=== PATIENT | male | born 1935 | race Caucasian/White ===

== ENCOUNTER 2019-10-30 11:56 | Inpatient (IN) | payer MEDICARE, BC ==
[2019-10-30 12:37] LABS: Basophils % (A) 1 %; Eosinophils # (A) 0.1 k/uL (0-0.7); Eosinophils % (A) 1 %; HCT 42.2 % (39.0-53.0); HGB 13.6 gm/dL (13.0-17.5); Lymphocytes # (A) 0.5 k/uL (1.0-4.8); Lymphocytes % (A) 5 %; MCH 31.9 pg (25.0-35.0); MCHC 32.2 g/dL (31.0-37.0); MCV 99.1 fL (80.0-100.0); Monocytes # (A) 0.4 k/uL (0-1.0); Monocytes % (A) 4 %; Neutrophils # (A) 8.8 k/uL (1.3-7.7); Neutrophils % (A) 89 %; Platelet Count 163 k/uL (150-450); RBC 4.26 m/uL (4.30-5.90); RDW 13.2 % (11.5-15.5); WBC 9.9 k/uL (3.8-10.6)
--- NOTE | 2019-10-30 12:40 | ED ---
General Adult HPI - General Chief complaint: Abdominal Pain Stated complaint: gallbladder infection/sent by pcp Time Seen by Provider: 10/30/19 12:12 Source: patient Mode of arrival: ambulatory Limitations: no limitations - History of Present Illness Initial comments: Dictation was produced using [employer] dictation software. please excuse any grammatical, word or spelling errors. This patient was cared for during a federal and state declared state of emergency secondary to Covid 19 Chief Complaint: 84-year-old male presents with right arm quadrant abdominal pain History of Present Illness: 84-year-old male presents today with right upper quadrant abdominal pain. Patient states his symptoms began at 2:30 AM last night. He had some cheese and crackers for dinner yesterday. Patient has had history of right upper quadrant abdominal pain in the past. He was told that he had a small gallstone. He has not had any gallstone attack in several years. Does complain of some diarrhea. Complains of some mild nausea but no vomiting. Denies any constitutional symptoms. They've been checking his temperature at home without any abnormal measurements. The ROS documented in this emergency department record has been reviewed and confirmed by me. Those systems with pertinent positive or negative responses have been documented in the HPI. All other systems are other negative and/or noncontributory. PHYSICAL EXAM: General Impression: Alert and oriented x3, not in acute distress HEENT: Normocephalic atraumatic, extra-ocular movements intact, pupils equal and reactive to light bilaterally, mucous membranes moist. Cardiovascular: Heart regular rate and rhythm Chest: Able to complete full sentences, no retractions, no tachypnea Abdomen: abdomen soft, non-tender, non-distended, no organomegaly, positive Sullivan sign Musculoskeletal: Pulses present and equal in all extremities, no peripheral edema Motor: no focal deficits noted Neurological: CN II-XII grossly intact, no focal motor or sensory deficits noted Skin: Intact with no visualized rashes Psych: Normal affect and mood ED course: 84 y Old male presents with right upper quadrant abdominal pain. Signs upon arrival are within acceptable limits. Laboratory evaluation obtained. CBC unremarkable. No leukocytosis however there is elevated neutrophils. Metabolic panel is unremarkable. No elevation abdominal labs. No elevated bilirubinemia. Acute abdominal series and chest x-ray is nonacute. Abdominal ultrasound shows hydropic gallbladder with biliary sludge. Patient reevaluated at bedside continues to have right upper quadrant pain. Considering patient's symptoms and ultrasound findings and lipase showed benefit from inpatient observation. Discussed patient case with Dr. Bal who is willing to accept patient's care. [facility] hospitalist group is on consult. EKG interpretation: Ventricular rate 50, sinus bradycardia, AK 164, QRS 110, QTc 479. No AK prolongation, no QTC prolongation, no ST or T-wave changes noted. . Overall, this EKG is unremarkable - Related Data Home Medications Medication Instructions Recorded Confirmed ALPRAZolam [Xanax] 0.5 mg PO BID 10/30/19 10/30/19 Finasteride [Proscar] 5 mg PO DAILY 10/30/19 10/30/19 Montelukast [Singulair] 10 mg PO HS 10/30/19 10/30/19 Multivitamins, Thera [Multivitamin 1 tab PO DAILY 10/30/19 10/30/19 (formulary)] Sotalol [Betapace] 80 mg PO BID 10/30/19 10/30/19 Terazosin [Hytrin] 2 mg PO HS 10/30/19 10/30/19 Allergies Allergy/AdvReac Type Severity Reaction Status Date / Time No Known Allergies Allergy Verified 10/30/19 12:52 Review of Systems ROS Statement: Those systems with pertinent positive or pertinent negative responses have been documented in the HPI. ROS Other: All systems not noted in ROS Statement are negative. Past Medical History Past Medical History: Unable to Obtain History of Any Multi-Drug Resistant Organisms: None Reported Past Surgical History: No Surgical Hx Reported Past Psychological History: No Psychological Hx Reported Smoking Status: Never smoker Past Alcohol Use History: Unable to Obtain Past Drug Use History: None Reported General Exam Limitations: no limitations Course Vital Signs 10/30/19 10/30/19 12:07 13:14 Temperature 97.8 F Pulse Rate 62 70 Respiratory 16 18 Rate Blood Pressure 109/64 138/85 O2 Sat by Pulse 96 96 Oximetry Medical Decision Making - Lab Data Result diagrams: 10/30/19 12:27 10/30/19 12:27 Lab Results 10/30/19 10/30/19 Range/Units 12:27 12:27 WBC 9.9 (3.8-10.6) k/uL RBC 4.26 L (4.30-5.90) m/uL Hgb 13.6 (13.0-17.5) gm/dL Hct 42.2 (39.0-53.0) % MCV 99.1 (80.0-100.0) fL MCH 31.9 (25.0-35.0) pg MCHC 32.2 (31.0-37.0) g/dL RDW 13.2 (11.5-15.5) % Plt Count 163 (150-450) k/uL Neutrophils % 89 % Lymphocytes % 5 % Monocytes % 4 % Eosinophils % 1 % Basophils % 1 % Neutrophils # 8.8 H (1.3-7.7) k/uL Lymphocytes # 0.5 L (1.0-4.8) k/uL Monocytes # 0.4 (0-1.0) k/uL Eosinophils # 0.1 (0-0.7) k/uL Basophils # 0.0 (0-0.2) k/uL Sodium 136 L (137-145) mmol/L Potassium 4.4 (3.5-5.1) mmol/L Chloride 102 (98-107) mmol/L Carbon Dioxide 25 (22-30) mmol/L Anion Gap 9 mmol/L BUN 32 H (9-20) mg/dL Creatinine 1.17 (0.66-1.25) mg/dL Est GFR (CKD-EPI)AfAm 66 (>60 ml/min/1.73 sqM) Est GFR (CKD-EPI)NonAf 57 (>60 ml/min/1.73 sqM) Glucose 163 H (74-99) mg/dL Calcium 10.7 H (8.4-10.2) mg/dL Magnesium 2.1 (1.6-2.3) mg/dL Total Bilirubin 0.9 (0.2-1.3) mg/dL AST 29 (17-59) U/L ALT 23 (4-49) U/L Alkaline Phosphatase 74 (38-126) U/L Total Protein 7.1 (6.3-8.2) g/dL Albumin 4.3 (3.5-5.0) g/dL Lipase 113 (23-300) U/L Disposition Clinical Impression: Abdominal pain Disposition: ADMITTED IP TO THIS HOSP Condition: Fair Referrals: Grupo Stevenson DO [Primary Care Provider] - 1-2 days Decision Time: 15:04
[2019-10-30 12:46] LABS: Albumin 4.3 g/dL (3.5-5.0); Calcium 10.7 mg/dL (8.4-10.2); Magnesium 2.1 mg/dL (1.6-2.3); Potassium 4.4 mmol/L (3.5-5.1); Total Bilirubin 0.9 mg/dL (0.2-1.3); Total Protein 7.1 g/dL (6.3-8.2)
--- NOTE | 2019-10-30 13:58 | US ---
EXAMINATION TYPE: US abdomen complete DATE OF EXAM: 10/30/2019 COMPARISON: NONE CLINICAL HISTORY: abdominal pain. Pain. NPO. EXAM MEASUREMENTS: Liver Length: 15.8 cm Gallbladder Wall: 0.2 cm CBD: 0.3 cm Spleen: 10.5 cm Right Kidney: 10.5 x 4.6 x 4.8 cm Left Kidney: 9.3 x 4.6 x 5.4 cm Pancreas: Tail obscured by overlying bowel gas Liver: wnl Gallbladder: Enlarged in size= 13.4 cm. Sludge and stones visualized, largest - 1.0 cm Evidence for sonographic Sullivan's sign: Positive CBD: wnl Spleen: wnl Right Kidney: No hydronephrosis or masses seen Left Kidney: No hydronephrosis or masses seen Upper IVC: wnl Abd Aorta: Proximal obscured by overlying bowel gas. Limited views of the pancreas are unremarkable. The liver is normal in size without biliary dilatation. The gallbladder is hydropic. There is sludge within the gallbladder. The gallbladder wall measures 2 mm. The distal common hepatic duct measures 3 mm. There is a positive sonographic Sullivan's sign. Both kidneys are unremarkable. Visualized portions of aorta and IVC are unremarkable. IMPRESSION: SOMEWHAT HYDROPIC GALLBLADDER WITH SLUDGE WITHIN AND A POSITIVE SONOGRAPHIC SULLIVAN'S SIGN.
--- NOTE | 2019-10-30 14:14 | XR ---
EXAMINATION TYPE: XR abdomen acute w cxr DATE OF EXAM: 10/30/2019 COMPARISON: NONE HISTORY: Abdominal pain TECHNIQUE: 4 views FINDINGS: There is minimal linear density at the left lung base. There is no heart failure. There is no pulmonary consolidation. Heart size is normal. There is no sign of intestinal obstruction or pneumoperitoneum. Fecal pattern is normal. There is mil d thoracolumbar dextroscoliosis. There are no pathologic calcifications over the kidneys. IMPRESSION: Minimal subsegmental atelectasis left lung base. Nonacute abdomen.
[2019-10-30] MEDS ORDERED: NALOXONE 0.4 MG/ML 1 ML VIAL IV PRN (14:57)
[2019-10-30] MEDS ORDERED: ACETAMINOPHEN TAB 325 MG TAB PO PRN (14:57)
[2019-10-30] MEDS ORDERED: MORPHINE SULFATE 4 MG/ML SYRINGE IV PRN (14:57)
[2019-10-30] MEDS: SODIUM CHLORIDE 0.9% 1,000 ML IV SCH (15:16)
[2019-10-30] MEDS: PANTOPRAZOLE 40 MG/10 ML VIAL IVP SCH (19:36)
[2019-10-30] MEDS: ALPRAZolam 0.5 MG TAB PO SCH (20:12)
[2019-10-30] MEDS: MONTELUKAST 10 MG TAB PO SCH (20:12)
[2019-10-30] MEDS: DOXAZOSIN 2 MG TAB PO SCH (20:13)
[2019-10-30] MEDS: SOTALOL 80 MG TAB PO SCH (20:13)
[2019-10-30] MEDS: HEPARIN SODIUM,PORCINE 5,000 UNIT/ML 1 ML VIAL SQ SCH (20:13)
--- NOTE | 2019-10-30 20:16 | CONS ---
CONSULTATION REASON FOR CONSULTATION: Advice regarding atrial fibrillation and other medical issues requested by Surgery. HISTORY OF PRESENT ILLNESS: This 84-year-old gentleman with a past medical history of apparent atrial fibrillation being followed by Dr. Stevenson in the outpatient setting, was also seeing a education specialist in [place], according to the family. The patient is usually in good health according to the family and this morning the patient woke up and complaining of severe right upper quadrant abdominal pain. The symptoms started around 2:30 am and the patient previously had history of gallstones, but no attacks for the last several days. Patient came to [facility] and basic labs showed some dehydration with normal LFTs. Pond virus test was negative and the patient also had some diarrhea according to the family and an abdominal ultrasound was done which showed evidence of hydrops gallbladder with sludge and also positive sonographic Sullivan's sign and patient admitted to the hospital for further evaluation and treatment. There is no history of fever, rigors or chills. There is no history of headache, loss of consciousness, seizures. No chest pain, palpitations, hematochezia, melena at this time. The EKG showed normal sinus rhythm. PAST MEDICAL HISTORY: History of cardiac irregularity, prostate issues. MEDICATIONS: 1. Hytrin 2 mg q.h.s. 2. Multivitamins 1 p.o. daily. 3. Singulair 10 mg q.h.s. 4. Proscar 5 mg. 5. Xanax 0.5 b.i.d. 6. Betapace 80 mg p.o. b.i.d. ALLERGIES: None. FAMILY HISTORY: No history of heart disease or strokes in the family. SOCIAL HISTORY: No history of smoking. No history of alcohol. REVIEW OF SYSTEMS: ENT diminished vision. Diminished hearing. Cardiovascular system: As mention earlier. Respiration as mentioned earlier. GI: As mentioned earlier. no dysuria. Nervous system: No numbness or weakness. Allergy/Immunology: No asthma or hayfever. Musculoskeletal as mentioned earlier. HEMATOLOGY/ONCOLOGY: No history of anemia. ENDOCRINE: No history of diabetes or hypothyroidism. CONSTITUTIONAL: As mentioned earlier. DERMATOLOGY: Negative. RHEUMATOLOGY negative. PSYCHIATRY as mentioned earlier. PHYSICAL EXAMINATION: Alert and oriented times three. Pulse 75. Blood pressure 109/74, respiration 18, temperature 97.8, pulse ox 97% on room air. HEENT is conjunctivae normal. Oral mucosa moist. NECK is no jugular venous distention. No carotid bruit. No lymph node enlargement. Cardiovascular system: S1, S2 irregular. No murmur. No thrills. Respirations: Breath sounds diminished in the bases. No rhonchi. No crackles. ABDOMEN: Soft. Mild diffuse discomfort. No guarding. No rigidity. No mass palpable. No tenderness currently. No ascites. Bowel sounds present. LEGS: No edema. No swelling. NERVOUS SYSTEM: Higher functions as mentioned earlier. Moves all 4 limbs. No focal motor or sensory deficits. LYMPHATICS: No lymph nodes palpable in the neck, axillae or groin. SKIN: No ulcer, no rashes and no bleeding. JOINTS: No active deforming arthropathy. LABS: WBC 9.2, hemoglobin 13.2. Sodium 136, potassium 4.4, calcium 10.7. ASSESSMENT: 1. Right upper quadrant abdominal pain possibly acute cholecystitis and cholelithiasis. 2. Hydrops gallbladder with sludge, possibly. 3. History of cardiac irregularity. 4. Hyponatremia mild. 5. Mild hypercalcemia. 6. Increased random blood sugar. 7. History of prostate issues. 8. Chest x-ray atelectasis. 9. FULL CODE. RECOMMENDATIONS AND DISCUSSION: This 84-year-old gentleman who presented with multiple complex medical issues, we will monitor the patient closely, continue the current medications, symptomatic treatment. Otherwise, the ultrasound was noted. I would recommend broad-spectrum IV antibiotics. I would also recommend incentive spirometry, also recommend DVT prophylaxis, symptomatic treatment for the pain. Closely follow with surgery. Otherwise, the patient appears to be medically stable if any surgical intervention is required. We will continue to monitor. Thank you Dr. Bal for letting us participate in the care of this patient. MMODL / IJN: [id number] /
--- NOTE | 2019-10-30 23:00 | P.GSHP ---
History of Present Illness H&P Date: 10/30/19 Chief Complaint: Acute cholecystitis 84-year-old male comes in the ER today complaining of pain right upper quadrant. The patient states he was having some urinary incontinence issues during the evening. Following this began experiencing pain right upper abdomen associated with some diarrhea. Pain was becoming more severe and came to the hospital for that reason. History of previous gallbladder attack 3-4 years ago. Per the family the patient did spend one night in the hospital at that time. Pain slightly improved currently. He is afebrile. White blood cell count is normal. Liver enzymes are normal. Ultrasound reviewed. Patient has a large distended gallbladder with a thickened wall and some stones. Sonographic Sullivan sign is positive. Patient has a cardiac history of arrhythmia. Patient is on a beta roxana but no blood thinners. - Review of Systems Comment: The patient denies any acute changes in vision or hearing, no dysphagia or odynophagia, no chest pain or shortness of breath, no dysuria or hematuria, no headache, no runny nose, no rectal bleeding or melena, no unexplained weight loss Past Medical History Past Medical History: Prostate Disorder History of Any Multi-Drug Resistant Organisms: None Reported Past Surgical History: Hernia Repair Past Anesthesia/Blood Transfusion Reactions: No Reported Reaction Past Psychological History: No Psychological Hx Reported Smoking Status: Former smoker Past Alcohol Use History: Unable to Obtain Additional Past Alcohol Use History / Comment(s): Ernst states he quit smoking in high school Past Drug Use History: None Reported - Past Family History Mother Family Medical History: No Reported History Medications and Allergies Home Medications Medication Instructions Recorded Confirmed Type ALPRAZolam [Xanax] 0.5 mg PO BID 10/30/19 10/30/19 History Finasteride [Proscar] 5 mg PO DAILY 10/30/19 10/30/19 History Montelukast [Singulair] 10 mg PO HS 10/30/19 10/30/19 History Multivitamins, Thera [Multivitamin 1 tab PO DAILY 10/30/19 10/30/19 History (formulary)] Sotalol [Betapace] 80 mg PO BID 10/30/19 10/30/19 History Terazosin [Hytrin] 2 mg PO HS 10/30/19 10/30/19 History Allergies Allergy/AdvReac Type Severity Reaction Status Date / Time No Known Allergies Allergy Verified 10/30/19 12:52 Surgical - Exam Vital Signs Temp Pulse Resp BP Pulse Ox 97.8 F 62 16 109/64 96 10/30/19 12:07 10/30/19 12:07 10/30/19 12:07 10/30/19 12:07 10/30/19 12:07 Physical exam: General: Well-developed, well-nourished HEENT: Normocephalic, sclerae nonicteric Abdomen: Tenderness right upper quadrant with tender palpable gallbladder and positive Sullivan sign, nondistended Extremities: No edema Neuro: Alert and oriented Results - Labs 10/30/19 12:27 10/30/19 12:27 Abnormal Lab Results - Last 24 Hours (Table) 10/30/19 10/30/19 Range/Units 12:27 12:27 RBC 4.26 L (4.30-5.90) m/uL Neutrophils # 8.8 H (1.3-7.7) k/uL Lymphocytes # 0.5 L (1.0-4.8) k/uL Sodium 136 L (137-145) mmol/L BUN 32 H (9-20) mg/dL Glucose 163 H (74-99) mg/dL Calcium 10.7 H (8.4-10.2) mg/dL Diabetes panel 10/30/19 Range/Units 12:27 Sodium 136 L (137-145) mmol/L Potassium 4.4 (3.5-5.1) mmol/L Chloride 102 (98-107) mmol/L Carbon Dioxide 25 (22-30) mmol/L BUN 32 H (9-20) mg/dL Creatinine 1.17 (0.66-1.25) mg/dL Glucose 163 H (74-99) mg/dL Calcium 10.7 H (8.4-10.2) mg/dL AST 29 (17-59) U/L ALT 23 (4-49) U/L Alkaline Phosphatase 74 (38-126) U/L Total Protein 7.1 (6.3-8.2) g/dL Albumin 4.3 (3.5-5.0) g/dL Calcium panel 10/30/19 Range/Units 12:27 Calcium 10.7 H (8.4-10.2) mg/dL Albumin 4.3 (3.5-5.0) g/dL Pituitary panel 10/30/19 Range/Units 12:27 Sodium 136 L (137-145) mmol/L Potassium 4.4 (3.5-5.1) mmol/L Chloride 102 (98-107) mmol/L Carbon Dioxide 25 (22-30) mmol/L BUN 32 H (9-20) mg/dL Creatinine 1.17 (0.66-1.25) mg/dL Glucose 163 H (74-99) mg/dL Calcium 10.7 H (8.4-10.2) mg/dL Adrenal panel 10/30/19 Range/Units 12:27 Sodium 136 L (137-145) mmol/L Potassium 4.4 (3.5-5.1) mmol/L Chloride 102 (98-107) mmol/L Carbon Dioxide 25 (22-30) mmol/L BUN 32 H (9-20) mg/dL Creatinine 1.17 (0.66-1.25) mg/dL Glucose 163 H (74-99) mg/dL Calcium 10.7 H (8.4-10.2) mg/dL Total Bilirubin 0.9 (0.2-1.3) mg/dL AST 29 (17-59) U/L ALT 23 (4-49) U/L Alkaline Phosphatase 74 (38-126) U/L Total Protein 7.1 (6.3-8.2) g/dL Albumin 4.3 (3.5-5.0) g/dL Assessment and Plan (1) Acute cholecystitis due to biliary calculus Narrative/Plan: 84-year-old male with acute cholecystitis. Options reviewed with the patient and his daughter Michelle who I spoke with by phone. Recommend surgical intervention given the exam findings and ultrasound findings. Continue antibiotics for now. We'll consult cardiology for clearance. Laparoscopic, possible open cholecystectomy 24-48 hours. Risks of bleeding, infection, bile leak, bile duct injury, retained common bile duct stone, trocar injury, conversion to an open procedure, hernia, anesthesia related complications were reviewed. The patient understands and wishes to proceed. Current Visit: Yes Status: Acute Code(s): K80.00 - CALCULUS OF GALLBLADDER W ACUTE CHOLECYST W/O OBSTRUCTION SNOMED Code(s): 34185013752057
[2019-10-31] MEDS: SODIUM CHLORIDE 0.9% 1,000 ML IV SCH ×2 (05:37→17:47)
[2019-10-31 06:14] LABS: Basophils % (A) 0 %; Eosinophils % (A) 0 %; HCT 37.8 % (39.0-53.0); HGB 12.2 gm/dL (13.0-17.5); Lymphocytes # (A) 0.6 k/uL (1.0-4.8); Lymphocytes % (A) 6 %; MCH 32.4 pg (25.0-35.0); MCHC 32.3 g/dL (31.0-37.0); MCV 100.3 fL (80.0-100.0); Mean Platelet Volume 8.6; Monocytes # (A) 0.8 k/uL (0-1.0); Monocytes % (A) 8 %; Neutrophils # (A) 8.1 k/uL (1.3-7.7); Neutrophils % (A) 84 %; Platelet Count 154 k/uL (150-450); RBC 3.77 m/uL (4.30-5.90); RDW 13.3 % (11.5-15.5); WBC 9.7 k/uL (3.8-10.6)
[2019-10-31 06:27] LABS: Albumin 3.4 g/dL (3.5-5.0); Calcium 9.5 mg/dL (8.4-10.2); Potassium 4.2 mmol/L (3.5-5.1); Total Bilirubin 0.9 mg/dL (0.2-1.3)
--- NOTE | 2019-10-31 06:59 | XR ---
EXAMINATION TYPE: XR chest 1V portable DATE OF EXAM: 10/31/2019 HISTORY: chf. REFERENCE: NONE. FINDINGS: The heart is mildly enlarged. The lungs are clear. There is some blunting of the right CP a ngle. It would be difficult to exclude a small right effusion. IMPRESSION: 1. MILD CARDIOMEGALY. 2. SMALL RIGHT-SIDED EFFUSION.
--- NOTE | 2019-10-31 09:40 | P.CRDCN ---
History of Present Illness Consult date: 10/31/19 Requesting physician: Fred Bal Reason for Consult (text): preoperative cardiac clearance Chief complaint: RUQ abdominal pain History of present illness: This is a pleasant 84-year-old gentleman with a past medical history of fibrillation, status post cardioversion a few years back, currently maintaining sinus rhythm, prior history of smoking but quit during his teenage years. Denies a history of hypertension, hyperlipidemia or diabetes. 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 He presented to the emergency department with complaints of abdominal discomfort that started around 2:30 in the morning on October 29. Abdominal ultrasound showed somewhat hydropic gallbladder with sludge wi thin the positive sonographic Sullivan sign. Abdominal x-ray showed nonacute abdomen. Chest x-ray showed mild cardiomegaly with small right-sided effusion. EKG showed sinus bradycardia with incomplete left bundle branch block. Vital signs are essentially stable with occasional episodes of hypertension likely secondary to pain. Labs show a normal white count, hemoglobin 12.2, potassium 4.2, BUN 25, creatinine 1.09. Patient was negative for COVID-19. Other than abdominal discomfort, patient also complains of frequent urination especially through the night likely secondary to underlying prostate issues. He is currently on finasteride and doxazosin. He's currently on sotalol 80 mg by mout h twice a day. He has not been anticoagulated in the past. Again he is currently maintaining sinus rhythm. Cornea and the patient he's not had any cardiac testing done in a couple years. He's had no complaints of chest discomfort, shortness of breath, dizziness, lightheadedness, syncope, edema, or palpitations. Past Medical History Past Medical History: Prostate Disorder History of Any Multi-Drug Resistant Organisms: None Reported Past Surgical History: Hernia Repair Past Anesthesia/Blood Transfusion Reactions: No Reported Reaction Past Psychological History: No Psychological Hx Reported Smoking Status: Former smoker Past Alcohol Use History: Unable to Obtain Additional Past Alcohol Use History / Comment(s): Ernst states he quit smoking in high school Past Drug Use History: None Reported - Past Family History Mother Family Medical History: No Reported History Medications and Allergies Home Medications Medication Instructions Recorded Confirmed Type ALPRAZolam [Xanax] 0.5 mg PO BID 10/30/19 10/30/19 History Finasteride [Proscar] 5 mg PO DAILY 10/30/19 10/30/19 History Montelukast [Singulair] 10 mg PO HS 10/30/19 10/30/19 History Multivitamins, Thera [Multivitamin 1 tab PO DAILY 10/30/19 10/30/19 History (formulary)] Sotalol [Betapace] 80 mg PO BID 10/30/19 10/30/19 History Terazosin [Hytrin] 2 mg PO HS 10/30/19 10/30/19 History Allergies Allergy/AdvReac Type Severity Reaction Status Date / Time No Known Allergies Allergy Verified 10/30/19 12:52 Physical Exam Vitals: Vital Signs Temp Pulse Pulse Resp BP BP Pulse Ox 10/31/19 05:41 99.3 F 79 12 117/54 94 L 10/30/19 20:50 97.5 F L 79 16 148/70 95 10/30/19 19:30 98.2 F 80 12 192/84 96 10/30/19 19:00 97.8 F 77 18 130/82 97 10/30/19 17:07 75 18 129/74 97 10/30/19 15:15 80 18 155/70 98 10/30/19 15:00 72 18 162/78 98 10/30/19 13:14 70 18 138/85 96 10/30/19 12:07 97.8 F 62 16 109/64 96 Intake and Output 10/30/19 10/31/19 10/31/19 22:59 06:59 14:59 Intake Total 225 Balance 225 Intake: Intake, IV Titration 225 Amount Sodium Chloride 0.9% 1, 225 000 ml @ 75 mls/hr IV . [id number] [facility] Rx#:[id number] Other: Voiding Method Toilet # Voids 1 2 Weight 74.843 kg PHYSICAL EXAMINATION: HEENT: Head is atraumatic, normocephalic. Pupils equal, round. Neck is supple. There is no elevated jugular venous pressure. HEART EXAMINATION: Heart sounds regular with extrasystole, S1 and S2 with a systolic murmur. CHEST EXAMINATION: Lungs are clear to auscultation and precussion. No chest wall tenderness is noted on palpation or with deep breathing. ABDOMEN: Soft, right upper quadrant tenderness with guarding. Bowel sounds are heard. No organomegaly noted. EXTREMITIES: 2+ peripheral pulses with no evidence of peripheral edema and no calf tenderness noted. NEUROLOGIC patient is awake, alert and oriented x3. . Results 10/31/19 05:52 10/31/19 05:52 Cardiac Enzymes 10/30/19 10/31/19 Range/Units 12:27 05:52 AST 29 25 (17-59) U/L CBC 10/30/19 10/31/19 Range/Units 12:27 05:52 WBC 9.9 9.7 (3.8-10.6) k/uL RBC 4.26 L 3.77 L (4.30-5.90) m/uL Hgb 13.6 12.2 L (13.0-17.5) gm/dL Hct 42.2 37.8 L (39.0-53.0) % Plt Count 163 154 (150-450) k/uL Comprehensive Metabolic Panel 10/30/19 10/31/19 Range/Units 12:27 05:52 Sodium 136 L 139 (137-145) mmol/L Potassium 4.4 4.2 (3.5-5.1) mmol/L Chloride 102 106 (98-107) mmol/L Carbon Dioxide 25 26 (22-30) mmol/L BUN 32 H 25 H (9-20) mg/dL Creatinine 1.17 1.09 (0.66-1.25) mg/dL Glucose 163 H 120 H (74-99) mg/dL Calcium 10.7 H 9.5 (8.4-10.2) mg/dL AST 29 25 (17-59) U/L ALT 23 19 (4-49) U/L Alkaline Phosphatase 74 49 (38-126) U/L Total Protein 7.1 6.0 L (6.3-8.2) g/dL Albumin 4.3 3.4 L (3.5-5.0) g/dL Current Medications Generic Name Dose Route Start Last Admin Trade Name Freq PRN Reason Stop Dose Admin Acetaminophen 650 mg 10/30/19 14:57 Tylenol Tab PO Q6HR PRN Mild Pain or Fever > 100.5 Alprazolam 0.5 mg 10/30/19 21:00 10/30/19 20:12 Xanax PO 0.5 mg BID [facility] Administration Doxazosin Mesylate 2 mg 10/30/19 21:00 10/30/19 20:13 Cardura PO 2 mg HS [facility] Administration Finasteride 5 mg 10/31/19 09:00 Proscar PO DAILY [facility] Heparin Sodium (Porcine) 5,000 unit 10/30/19 21:00 10/30/19 20:13 Heparin SQ 5,000 unit Q12HR [facility] Administration Sodium Chloride 1,000 mls @ 75 mls/hr 10/30/19 15:00 10/31/19 05:37 Saline 0.9% IV 75 mls/hr .[id number] [facility] Administration Montelukast Sodium 10 mg 10/30/19 21:00 10/30/19 20:12 Singulair PO 10 mg HS [facility] Administration Morphine Sulfate 4 mg 10/30/19 14:57 Morphine Sulfate (Inj) IV Q4HR PRN Severe Pain Multivitamins 1 each 10/31/19 09:00 Theragran PO DAILY [facility] Naloxone HCl 0.2 mg 10/30/19 14:57 Narcan IV Q2M PRN Opioid Reversal Pantoprazole Sodium 40 mg 10/30/19 18:15 10/30/19 19:36 Protonix IVP 40 mg DAILY [facility] Administration Sotalol HCl 80 mg 10/30/19 21:00 10/30/19 20:13 Betapace PO 80 mg BID ANG[facility] Administration Intake and Output 10/30/19 10/31/19 10/31/19 22:59 06:59 14:59 Intake Total 225 Balance 225 Intake: Intake, IV Titration 225 Amount Sodium Chloride 0.9% 1, 225 000 ml @ 75 mls/hr IV . [id number] [facility] Rx#:[id number] Other: Voiding Method Toilet # Voids 1 2 Weight 74.843 kg 10/31/19 05:52 10/31/19 05:52 EKG Interpretations (text) Sinus bradycardia with incomplete left bundle-branch block Assessment and Plan Assessment: #1 acute cholecystitis, awaiting open cholecystectomy to be done by Dr. Bal today or tomorrow #2 history of atrial fibrillation, status post cardioversion, maintaining sinus rhythm #3 BPH #4 remote history of smoking Plan: From cardiology's perspective, patient has had no chest discomfort, shortness of breath or no signs of atrial fibrillation arc ingestive heart failure. Ideally we would like to obtain a 2-D echo with Doppler prior to surgery however there are no absolute contraindications to undergoing surgery at this time and if necessary may be done today. We will follow the patient perioperatively and provide further recommendations accordingly. QUALITY CONTROL SPECIALIST note has been reviewed, I agree with a documented findings and plan of care. Patient was seen and examined.
[2019-10-31] MEDS: HEPARIN SODIUM,PORCINE 5,000 UNIT/ML 1 ML VIAL SQ SCH ×2 (09:48→21:50)
[2019-10-31] MEDS: MULTIVITAMINS, THERA 1 EACH TAB PO SCH (09:48)
[2019-10-31] MEDS: SOTALOL 80 MG TAB PO SCH ×2 (10:19→21:50)
[2019-10-31] MEDS: ALPRAZolam 0.5 MG TAB PO SCH ×2 (10:19→21:50)
[2019-10-31] MEDS: PANTOPRAZOLE 40 MG/10 ML VIAL IVP SCH (10:19)
[2019-10-31] MEDS: FINASTERIDE 5 MG TAB PO SCH (10:19)
--- NOTE | 2019-10-31 12:11 | P.PN ---
Subjective Progress Note Date: 10/31/19 Principal diagnosis: Acute cholecystitis Patient says his pain is improved. No nausea or vomiting. He is hungry. T-max 99.3. White blood cell count normal. Objective - Vital Signs Vital signs: Vital Signs Temp 98.1 F 10/31/19 11:57 Pulse 69 10/31/19 11:57 Resp 17 10/31/19 11:57 BP 137/74 10/31/19 11:57 Pulse Ox 96 10/31/19 11:57 Intake & Output 10/30/19 10/31/19 10/31/19 18:59 06:59 18:59 Intake Total 225 Balance 225 Weight 74.843 kg Intake: Intake, IV Titration 225 Amount Sodium Chloride 0.9% 1, 225 000 ml @ 75 mls/hr IV . [id number] [facility] Rx#:[id number] Other: Voiding Method Toilet # Voids 2 - Exam Abdomen: Soft, nondistended, right upper quadrant tenderness with palpable gallbladder unchanged - Labs CBC & Chem 7: 10/31/19 05:52 10/31/19 05:52 Labs: Abnormal Lab Results - Last 24 Hours (Table) 10/30/19 10/30/19 10/31/19 Range/Units 12:27 12:27 05:52 RBC 4.26 L 3.77 L (4.30-5.90) m/uL Hgb 12.2 L (13.0-17.5) gm/dL Hct 37.8 L (39.0-53.0) % MCV 100.3 H (80.0-100.0) fL Neutrophils # 8.8 H 8.1 H (1.3-7.7) k/uL Lymphocytes # 0.5 L 0.6 L (1.0-4.8) k/uL Sodium 136 L (137-145) mmol/L BUN 32 H (9-20) mg/dL Glucose 163 H (74-99) mg/dL Calcium 10.7 H (8.4-10.2) mg/dL Total Protein (6.3-8.2) g/dL Albumin (3.5-5.0) g/dL 10/31/19 Range/Units 05:52 RBC (4.30-5.90) m/uL Hgb (13.0-17.5) gm/dL Hct (39.0-53.0) % MCV (80.0-100.0) fL Neutrophils # (1.3-7.7) k/uL Lymphocytes # (1.0-4.8) k/uL Sodium (137-145) mmol/L BUN 25 H (9-20) mg/dL Glucose 120 H (74-99) mg/dL Calcium (8.4-10.2) mg/dL Total Protein 6.0 L (6.3-8.2) g/dL Albumin 3.4 L (3.5-5.0) g/dL Assessment and Plan (1) Acute cholecystitis due to biliary calculus Narrative/Plan: Continue antibiotics. Cardiology consulted. 2-D echo is pending. Tentatively plan laparoscopic, possible open cholecystectomy tomorrow. Discussed with the patient's daughter by phone. Current Visit: Yes Status: Acute Code(s): K80.00 - CALCULUS OF GALLBLADDER W ACUTE CHOLECYST W/O OBSTRUCTION SNOMED Code(s): 42673334255261
--- NOTE | 2019-10-31 17:52 | PN ---
PROGRESS NOTE DATE OF SERVICE: 10/31/2019 This 84-year-old gentleman who was admitted with right upper quadrant abdominal pain had features of acute cholecystitis. Patient also had possible hydrops gallbladder, so Dr. Bal is following the patient closely. Cardiology saw the patient for paroxysmal atrial fibrillation. No chest pain. No palpitations. Two-D echo with Doppler has been ordered. PHYSICAL EXAMINATION: Alert and oriented x3. Pulse is 79. Blood pressure 117/54, respiration 12, temp 99.2, pulse ox 94% on room air. HEENT: Conjunctivae normal. NECK: No jugular venous distention. CARDIOVASCULAR: S1, S2 muffled. RESPIRATIONS: Breath sounds diminished in the bases. No rhonchi. No crackles. ABDOMEN: Soft, mild diffuse distention. Mild diffuse tenderness in the right upper quadrant. Gallbladder palpable. LEGS no edema. No swelling. CENTRAL NERVOUS SYSTEM: No focal deficits. LAB STUDIES: WBC 9.2, hemoglobin 12.2. ASSESSMENT: 1. Right upper quadrant abdominal pain with acute cholecystitis and possibly hydrops gallbladder and cholelithiasis. 2. Hydrops gallbladder with sludge, possibly. 3. History of cardiac irregularity and atrial fibrillation paroxysmal. 4. Hyponatremia mild. 5. Mild hypercalcemia. 6. Increased random blood sugar. 7. History of prostate issues. 8. Atelectasis in the chest x-ray. 9. FULL CODE. RECOMMENDATIONS AND DISCUSSION: I recommend to continue current medications, symptomatic treatment. Cardiology following the patient closely. The patient is cleared for surgery. DVT prophylaxis. Continue the rest of medications. Closely follow with Dr. Bal. Further recommendations to follow. Empiric antibiotics also recommended. MMODL / IJN: [id number] /
[2019-10-31] MEDS: DOXAZOSIN 2 MG TAB PO SCH (21:50)
[2019-10-31] MEDS: MONTELUKAST 10 MG TAB PO SCH (21:50)
[2019-11-01] MEDS: SODIUM CHLORIDE 0.9% 1,000 ML IV SCH ×4 (05:40→18:52)
[2019-11-01] MEDS: ALPRAZolam 0.5 MG TAB PO SCH ×2 (08:05→20:50)
[2019-11-01] MEDS: MULTIVITAMINS, THERA 1 EACH TAB PO SCH (08:05)
[2019-11-01] MEDS: SOTALOL 80 MG TAB PO SCH ×2 (08:05→20:50)
[2019-11-01] MEDS: PANTOPRAZOLE 40 MG/10 ML VIAL IVP SCH (08:06)
[2019-11-01] MEDS: FINASTERIDE 5 MG TAB PO SCH (08:07)
[2019-11-01] MEDS: HEPARIN SODIUM,PORCINE 5,000 UNIT/ML 1 ML VIAL SQ SCH ×3 (08:09→20:50)
--- NOTE | 2019-11-01 10:00 | ECHOF ---
Referral Reason:history of AF, preop MEASUREMENTS -------- HEIGHT: 180.3 cm WEIGHT: 74.8 kg BP: 136/66 RVIDd: 4.1 cm (< 3.3) IVSd: 1.4 cm (0.6 - 1.1) LVIDd: 5.0 cm (3.9 - 5.3) LVPWd: 1.9 cm (0.6 - 1.1) IVSs: 1.7 cm LVIDs: 3.5 cm LVPWs: 2.3 cm LA Diam: 3.4 cm (2.7 - 3.8) LAESV Index (A-L): 40.54 ml/m Ao Diam: 3.6 cm (2.0 - 3.7) AV Cusp: 1.9 cm (1.5 - 2.6) MV EXCURSION: 17.354 mm (> 18.000) MV EF SLOPE: 92 mm/s (70 - 150) EPSS: 1.2 cm MV E Robert: 0.78 m/s MV DecT: 222 ms MV A Robert: 0.94 m/s MV E/A Ratio: 0.83 RAP: 20.00 mmHg RVSP: 61.56 mmHg FINDINGS -------- Sinus rhythm with extra systolic beats. This was a technically difficult study with suboptimal apical views. The left ventricular size is normal. There is moderate concentric left ventricular hypertrophy. O verall left ventricular systolic function is mild-moderately impaired with, an EF between 40 - 45 %. Mitral Doppler inflow pattern suggests diastolic filling abnormality {E/E'}. The right ventricle is moderately enlarged. LA is moderately dilated 34-39 ml/m2 The right atrium is moderately enlarged. xx ml of Lumason was utilized for enhancement of images. Interatrial and interventricular septum intact. There is no evidence of aortic regurgitation. There is no evidence of aortic stenosis. Moderate mitral regurgitation is present. Moderate to severe tricuspid regurgitation present. There is severe pulmonary hypertension. The r ight ventricular systolic pressure, as measured by Doppler, is 61.56mmHg. There is no pulmonic regurgitation present. The aortic root size is normal. The inferior vena cava is dilated with poor inspiratory collapse which is consistent with estimated r ight atrial pressure of 20 mmHg. There is no pericardial effusion. CONCLUSIONS -------- 1. Sinus rhythm with extra systolic beats. 2. This was a technically difficult study with suboptimal apical views. 3. The left ventricular size is normal. 4. There is moderate concentric left ventricular hypertrophy. 5. Overall left ventricular systolic function is mild-moderately impaired with, an EF between 40 - 45 %. 6. Mitral Doppler inflow pattern suggest diastolic filling abnormality {E/E'}. 7. The right ventricle is moderately enlarged. 8. LA is moderately dilated 34-39 ml/m2 9. The right atrium is moderately enlarged. 10. xx ml of Lumason was utilized for enhancement of images. 11. Interatrial and interventricular septum intact. 12. There is no evidence of aortic regurgitation. 13. There is no evidence of aortic stenosis. 14. Moderate mitral regurgitation is present. 15. Moderate to severe tricuspid regurgitation present. 16. There is severe pulmonary hypertension. 17. The right ventricular systolic pressure, as measured by Doppler, is 61.56mmHg. 18. There is no pulmonic regurgitation present. 19. The aortic root size is normal. 20. The inferior vena cava is dilated with poor inspiratory collapse which is consistent with estimat ed right atrial pressure of 20 mmHg. 21. There is no pericardial effusion. AQUATIC HABITAT BIOLOGIST: Yuly Menon RDCS
--- NOTE | 2019-11-01 12:01 | P.PN ---
Subjective This is a pleasant 84-year-old male past medical history significant for paroxysmal atrial fibrillation status post cardioversion not on long-term anticoagulation for unknown reason and BPH. He states he follows with Dr. Sanchez out of [facility]. He is seen and examined resting comfortably laying flat in bed in no acute distress. He denies any further symptoms of abdominal discomfort nausea or vomiting. He has no chest pain, shortness of breath, dizziness or palpitations. Blood pressure 148/77 heart rate 65 afebrile maintaining oxygen saturation on room air. Laboratory data reviewed, hemoglobin 12.2, platelets 154, sodium 139, potassium 4.2, creatinine 1.09. Echocardiogram reveals impaired LV systolic function with ejection fraction 40-45%, moderately dilated left atrium, moderate mitral regurgitation, moderate to severe tricuspid regurgitation and pulmonary hypertension with an RVSP of 60 mmHg. No old echo for comparison. He denies any prior history of coronary artery disease or heart catheterization in the past. Currently maintained on sotalol 80 mg BID and cardura 2 mg at bedtime. GENERAL: Well-appearing, well-nourished and in no acute distress. NECK: Supple without JVD or thyromegaly. LUNGS: Breath sounds clear to auscultation bilaterally. Respiration equal and unlabored. No wheezes, rales or rhonchi. HEART: Regular rate and rhythm with systolic ejection murmur at the left sternal border, no rubs or gallops. S1 and S2 heard. EXTREMITIES: Normal range of motion, no edema. No clubbing or cyanosis. Peripheral pulses intact. ASSESSMENT Acute cholecystitis Paroxysmal atrial fibrillation status post cardioversion currently maintaining sinus mechanism. Not on usp anticoagulation for unknown reason. Systolic heart failure, unknown of chronicity. Awaiting old echo from his primary management trainee program stores. Clinically euvolemic. PLAN Clinically stable to proceed with surgical intervention. Not in overt heart failure and no symptoms of angina. Obtain report from his management trainee program stores recent echocardiogram and office records. He will require long-term anticoagulation to be initiated after surgery for thromboemolic protection. This has been explained to him in great detail. We will also initiate an LAKSHMI/ARB to start tomorrow. Further recommendations to follow based on clinical course. Nurse Practitioner note has been reviewed, I agree with a documented findings and plan of care. Patient was seen and examined. Objective - Vital Signs Vital signs: Vital Signs Temp 98 F 11/01/19 11:43 Pulse 65 11/01/19 11:43 Resp 20 11/01/19 11:43 BP 148/77 11/01/19 11:43 Pulse Ox 95 11/01/19 11:43 Intake & Output 10/31/19 11/01/19 11/01/19 18:59 06:59 18:59 Intake Total 240 975 Balance 240 975 Intake: IV 975 Sodium Chloride 0.9% 1, 975 000 ml @ 75 mls/hr IV . [id number] [facility] Rx#:[id number] Oral 240 Other: Voiding Method Toilet Toilet Toilet # Voids 3 2 - Labs CBC & Chem 7: 10/31/19 05:52 10/31/19 05:52
--- NOTE | 2019-11-01 14:12 | P.PN ---
Subjective Progress Note Date: 11/01/19 Principal diagnosis: This is an 84-year-old male who was recently admitted with right upper quadrant abdominal pain and is being closely monitored. Surgery following. Patient also noted to have possible hydrops gallbladder. Brian ultrasound of the gallbladder was done showing sludge within along with a hytropic gallbladder and positive Sullivan's sign. Patient being seen and evaluated by cardiology for surgical clearance. Patient underwent an echocardiogram showing overall left ventricular systolic function is mild to moderately impaired with an EF between 40 and 45% along with some moderate mitral regurgitation and moderate to severe tricuspid regurgitation. Severe pulmonary hypertension also noted. Patient will need anticoagulation status post surgery for thromboembolic protection. Will await surgical report. Patient is scheduled to undergo cholecystectomy t his afternoon with Dr. Bal. Will await report. Currently no reports of chest pain, shortness of breath, or palpitations. Patient is afebrile. No reports of nausea or vomiting and patient has been nothing by mouth. Review of systems: Constitutional: No reports of fevers or chills Cardiovascular: No reports of chest pain or palpitations Respiratory: No reports of shortness of breath or cough GI: No reports of nausea, vomiting, or diarrhea : No reports of dysuria or retention Neurological: No reports of weakness or numbness Active Medications Acetaminophen (Tylenol Tab) 650 mg PO Q6HR PRN PRN Reason: Mild Pain or Fever > 100.5 Alprazolam (Xanax) 0.5 mg PO BID [facility] Last Admin: 11/01/19 08:05 Dose: 0.5 mg Documented by: Doxazosin Mesylate (Cardura) 2 mg PO HS [facility] Last Admin: 10/31/19 21:50 Dose: 2 mg Documented by: Finasteride (Proscar) 5 mg PO DAILY [facility] Last Admin: 11/01/19 08:07 Dose: 5 mg Documented by: Heparin Sodium (Porcine) (Heparin) 5,000 unit SQ Q12HR [facility] Last Admin: 11/01/19 08:09 Dose: Not Given Documented by: Sodium Chloride (Saline 0.9%) 1,000 mls @ 75 mls/hr IV .[id number] [facility] Last Admin: 11/01/19 08:08 Dose: 75 mls/hr Documented by: Ceftriaxone Sodium 1 gm/ (Sodium Chloride) 50 mls @ 100 mls/hr IVPB Q24HR [facility] Last Admin: 11/01/19 08:07 Dose: 100 mls/hr Documented by: Montelukast Sodium (Singulair) 10 mg PO HS [facility] Last Admin: 10/31/19 21:50 Dose: 10 mg Documented by: Morphine Sulfate (Morphine Sulfate (Inj)) 4 mg IV Q4HR PRN PRN Reason: Severe Pain Multivitamins (Theragran) 1 each PO DAILY [facility] Last Admin: 11/01/19 08:05 Dose: 1 each Documented by: Naloxone HCl (Narcan) 0.2 mg IV Q2M PRN PRN Reason: Opioid Reversal Pantoprazole Sodium (Protonix) 40 mg IVP DAILY [facility] Last Admin: 11/01/19 08:06 Dose: 40 mg Documented by: Sotalol HCl (Betapace) 80 mg PO BID [facility] Last Admin: 11/01/19 08:05 Dose: 80 mg Documented by: Objective - Vital Signs Vital signs: Vital Signs Temp 98 F 11/01/19 11:43 Pulse 65 11/01/19 11:43 Resp 20 11/01/19 11:43 BP 148/77 11/01/19 11:43 Pulse Ox 95 11/01/19 11:43 Intake & Output 10/31/19 11/01/19 11/01/19 18:59 06:59 18:59 Intake Total 240 975 Balance 240 975 Intake: IV 975 Sodium Chloride 0.9% 1, 975 000 ml @ 75 mls/hr IV . [id number] [facility] Rx#:[id number] Oral 240 Other: Voiding Method Toilet Toilet Toilet # Voids 3 2 - Exam Gen: This is an 84-year-old male sitting up in bed awake, alert and oriented 3, well-developed, well-nourished. Temp is 98F, pulse is 65, respirations are 20, blood pressure is 148/77, oxygen saturation is 95% on room air. HEENT: Head is atraumatic, normocephalic. Pupils equal, round. Sclerae is anicteric. NECK: Supple. No JVD. No lymphadenopathy. No thyromegaly. LUNGS: Breath sounds diminished at the bases with no wheezing or rhonchi noted. No intercostal retractions. HEART: S1, S2 are muffled ABDOMEN: Soft. Mild distention noted, tenderness upon palpation of the right upper quadrant. No masses. EXTREMITIES: No pedal edema. No calf tenderness. NEUROLOGICAL: Patient is awake, alert and oriented x3. Cranial nerves 2 through 12 are grossly intact. - Labs CBC & Chem 7: 10/31/19 05:52 10/31/19 05:52 Assessment and Plan Assessment: Right upper quadrant abdominal pain with acute cholecystitis and possibly hydrops gallbladder and cholelithiasis Hydrops gallbladder with sludge, as noted on ultrasound History of cardiac irregularity and atrial fibrillation, paroxysmal Mild hyponatremia Mild hypercalcemia increased random blood sugar history of prostate issues Atelectasis on the chest x-ray Full code Recommendations and discussion: Recommend to continue current medications, management, and symptomatic treatment. Cardiology along with surgery following. Patient scheduled to undergo cholecystectomy this afternoon with Dr. Bal. Patient has been nothing by mouth. Cardiology evaluated the patient and will need anticoagulation along with makayla/arb initiated status post surgery. Will continue to follow along closely with surgery. Continue with DVT prophylaxis in the form of heparin subq along with empiric antibiotic at this time. Further recommendations to follow.
[2019-11-01] MEDS ORDERED: IV FLUID CONTINUATION 1,000 ML IV ONE (14:53)
[2019-11-01] MEDS ORDERED: ROCURONIUM BROMIDE 10 MG/ML 5 ML VIAL IV ONE (16:21)
[2019-11-01] MEDS ORDERED: PROPOFOL 10 MG/ML 20 ML VIAL IV ONE (16:21)
[2019-11-01] MEDS ORDERED: GLYCOPYRROLATE 0.2 MG/ML 2 ML VIAL ONE (16:21)
[2019-11-01] MEDS ORDERED: DEXAMETHASONE SOD PHOS (MDV) 100 MG/10 ML VIAL ONE (16:21)
[2019-11-01] MEDS ORDERED: SUCCINYLCHOLINE CHLORIDE 100 MG/5 ML SYR IV ONE (16:21)
[2019-11-01] MEDS ORDERED: fentaNYL (PF) 50 MCG/ML 2 ML AMP ONE (16:21)
[2019-11-01] MEDS ORDERED: NEOSTIGMINE 1 MG/ML 10 ML VIAL ONE (16:21)
[2019-11-01] MEDS ORDERED: LIDOCAINE 1% INJ 10MG/ML (20 ML MDV) ONE (16:21)
[2019-11-01] MEDS ORDERED: ONDANSETRON 4 MG/2 ML VIAL ONE (16:21)
[2019-11-01] MEDS ORDERED: LACTATED RINGERS 1,000 ML IV ONE (16:24)
[2019-11-01] MEDS ORDERED: SODIUM CHLORIDE 0.9% 50 ML with ceFAZolin 2 GM IV ONE ×2 (16:24)
[2019-11-01] MEDS ORDERED: BUPIVACAIN-EPI 0.25%-1:200,000 30 ML VIAL SQ ONE ×2 (16:45)
[2019-11-01] MEDS ORDERED: LABETALOL SYRINGE 5 MG/ML IVP ONE (17:52)
[2019-11-01] MEDS ORDERED: HYDROcodone/APAP 5-325MG 1 EACH TAB PO PRN (17:55)
[2019-11-01] MEDS ORDERED: traMADol 50 MG TAB PO PRN (17:55)
--- NOTE | 2019-11-01 17:59 | P.OP ---
Date of Procedure: 11/01/19 Procedure(s) Performed: PREOPERATIVE DIAGNOSIS: Acute calculus cholecystitis POSTOPERATIVE DIAGNOSIS: Same PROCEDURE: Laparoscopic cholecystectomy SURGEON: Mally EBL: Minimal see anesthesia record ANESTHESIA: Gen. COMPLICATIONS: None OPERATIVE PROCEDURE: The patient was brought and placed on the operating room table in the supine position. The patient was placed under general anesthesia at that time. The abdomen was prepped and draped in the usual sterile fashion. A small vertical infraumbilical incision was made. The fascia was grasped with the Tomasz forceps. The fascia was retracted anteriorly. The Veress needle was advanced into the peritoneal cavity. The saline drop test was normal. Ins ufflation took place up to 15 mmHg. A 5 mm optical trocar was advanced and the peritoneal cavity. 2 additional 5 mm trochars were placed in the right upper quadrant under direct visualization. A 12 mm trocar was advanced into the epigastric incision site. The gallbladder was quite enlarged and significantly inflamed with erythema and induration of the wall the gallbladder. Given the tenseness of the gallbladder evacuation of contents was required. A small opening was made using cautery. The mostly clear fluid was evacuated using suction device. I was then able to mobilize the gallbladder further and the adhesions to the surrounding omentum were lysed. The gallbladder was retracted superiorly and laterally. The peritoneum overlying the infundibulum was bluntly dissected. The patient's cystic duct was visualized. The junction between the cystic duct common and hepatic duct was identified. The cystic duct was then divided after placement of 3 12 mm clips on the patient's side and one on the specimen side. The cystic artery was identified and clipped as well. A small vessel was seen along the gallbladder fossa and clipped as well. The gallbladder was then removed from the liver bed using electrocautery. The gallbladder was then placed in an Endo Catch bag. The gallbladder fossa was irrigated with saline. There was no evidence of any bleeding or biliary drainage seen. I decided to place a drain in the gallbladder fossa exiting through the most lateral 5 mm trocar site. This was sutured in place using a 3- 0 silk stitch. The gallbladder was then removed after pneumoperitoneum was evacuated. The fascia at the 12 millimeter site was lengthened using electrocautery in order to remove the gallbladder. The fascia was then reapproximated using a running 0 Vicryl stitch. The trochars were then removed. The skin at all 3 sites was closed using a 4-0 Monocryl stitch. Skin glue was utilized on the incision sites. At the end of this procedure the sponge and needle counts were correct. DISPOSITION: Stable to the recovery room
[2019-11-01] MEDS ORDERED: HYDROmorphone 0.5 MG/0.5 ML SYRINGE IVP ONE ×2 (18:09→18:30)
[2019-11-01] MEDS ORDERED: LABETALOL 5 MG/ML VIAL MDV IVP ONE (18:10)
[2019-11-01] MEDS: MONTELUKAST 10 MG TAB PO SCH (20:50)
[2019-11-01] MEDS: DOXAZOSIN 2 MG TAB PO SCH (20:50)
[2019-11-02] MEDS: SODIUM CHLORIDE 0.9% 1,000 ML IV SCH ×2 (06:50→17:57)
[2019-11-02] MEDS: SOTALOL 80 MG TAB PO SCH ×2 (08:03→20:05)
[2019-11-02] MEDS: FINASTERIDE 5 MG TAB PO SCH (08:03)
[2019-11-02] MEDS: MULTIVITAMINS, THERA 1 EACH TAB PO SCH (08:03)
[2019-11-02] MEDS: PANTOPRAZOLE 40 MG/10 ML VIAL IVP SCH (08:03)
[2019-11-02] MEDS: HEPARIN SODIUM,PORCINE 5,000 UNIT/ML 1 ML VIAL SQ SCH ×2 (08:03→20:05)
[2019-11-02] MEDS: ALPRAZolam 0.5 MG TAB PO SCH ×2 (08:03→20:05)
[2019-11-02] MEDS: LOSARTAN 25 MG TAB PO SCH (08:10)
--- NOTE | 2019-11-02 09:52 | P.PN ---
<Sugar Zamora - Last Filed: 11/02/19 09:48> Subjective Progress Note Date: 11/02/19 CHIEF COMPLAINT: abdominal pain HISTORY OF PRESENT ILLNESS: patient is status post laparoscopic cholecystectomy secondary to acute calculus cholecystitis. Postop day #1. Patient examined th is morning at the bedside. Patient reports he is having minimal pain. He is tolerating clear liquid diet. Denies nausea or vomiting. Vital signs stable. He is afebrile. Nursing reports patient only voided 100cc overnight. Patient did void this morning but states he did not measure his urine. PHYSICAL EXAM: VITAL SIGNS: Reviewed. GENERAL: Well-developed in no acute distress. HEENT: No sclera icterus. Extraocular movements grossly intact. Moist buccal mucosa. Head is atraumatic, normocephalic. ABDOMEN: Soft. Nondistended. surgical sites clean dry and intact. VIVIAN drain with serosanguineous drainage. NEUROLOGIC: Alert and oriented. Cranial nerves II through XII grossly intact. ASSESSMENT: 1. Acute calculus cholecystitis, status post laparoscopic cholecystectomy PLAN: -Advance diet -Monitor VIVIAN drain output -Monitor urine output. Patient encouraged to increase oral fluid intake -Incentive spirometer -Activity as tolerated -Case discussed with cardiology [employer]. Likely to begin anticoagulation this evening secondary to hx of afib Nurse practitioner note has been reviewed by physician. Signing provider agrees with the documented findings, assessment, and plan of care. Objective - Vital Signs Vital signs: Vital Signs Temp 97.5 F L 11/02/19 04:59 Pulse 70 11/02/19 04:59 Resp 18 11/02/19 04:59 BP 176/57 11/02/19 04:59 Pulse Ox 95 11/02/19 04:59 Intake & Output 11/01/19 11/02/19 11/02/19 18:59 06:59 18:59 Intake Total 850 825 Output Total 20 220 Balance 830 605 Intake: IV 850 825 Sodium Chloride 0.9% 1, 825 000 ml @ 75 mls/hr IV . [id number] [facility] Rx#:[id number] Output: Drainage 120 Right Abdomen 120 Urine 100 Estimated Blood Loss 20 Other: Voiding Method Toilet Toilet # Voids 2 - Labs CBC & Chem 7: 10/31/19 05:52 10/31/19 05:52 <Fred Bal - Last Filed: 11/02/19 11:14> Subjective As above. Patient says his pain is improved. VIVIAN drain is to sinus. Labs noted. Possible anticoagulation to start later today per cardiology. Gradually advance diet. Objective - Vital Signs Vital signs: Vital Signs Temp 97.5 F L 11/02/19 04:59 Pulse 70 11/02/19 04:59 Resp 18 11/02/19 04:59 BP 176/57 11/02/19 04:59 Pulse Ox 95 11/02/19 04:59 Intake & Output 11/01/19 11/02/19 11/02/19 18:59 06:59 18:59 Intake Total 850 825 Output Total 20 220 Balance 830 605 Intake: IV 850 825 Sodium Chloride 0.9% 1, 825 000 ml @ 75 mls/hr IV . [id number] [facility] Rx#:[id number] Output: Drainage 120 Right Abdomen 120 Urine 100 Estimated Blood Loss 20 Other: Voiding Method Toilet Toilet # Voids 2 - Labs CBC & Chem 7: 11/02/19 10:10 11/02/19 10:10 Labs: Abnormal Lab Results - Last 24 Hours (Table) 11/02/19 11/02/19 Range/Units 10:10 10:10 RBC 3.49 L (4.30-5.90) m/uL Hgb 11.6 L (13.0-17.5) gm/dL Hct 35.3 L (39.0-53.0) % MCV 101.1 H (80.0-100.0) fL Neutrophils # 9.6 H (1.3-7.7) k/uL Lymphocytes # 0.3 L (1.0-4.8) k/uL Chloride 108 H (98-107) mmol/L BUN 24 H (9-20) mg/dL Glucose 181 H (74-99) mg/dL Assessment and Plan (1) Acute cholecystitis due to biliary calculus Current Visit: Yes Status: Acute Code(s): K80.00 - CALCULUS OF GALLBLADDER W ACUTE CHOLECYST W/O OBSTRUCTION SNOMED Code(s): 87457676738310
[2019-11-02 10:41] LABS: Calcium 8.5 mg/dL (8.4-10.2); Potassium 3.9 mmol/L (3.5-5.1)
[2019-11-02 10:50] LABS: Basophils % (A) 0 %; Eosinophils % (A) 0 %; HCT 35.3 % (39.0-53.0); HGB 11.6 gm/dL (13.0-17.5); Lymphocytes # (A) 0.3 k/uL (1.0-4.8); Lymphocytes % (A) 3 %; MCH 33.2 pg (25.0-35.0); MCHC 32.8 g/dL (31.0-37.0); MCV 101.1 fL (80.0-100.0); Macrocytosis Slight; Mean Platelet Volume 9.5; Monocytes # (A) 0.4 k/uL (0-1.0); Monocytes % (A) 4 %; Neutrophils # (A) 9.6 k/uL (1.3-7.7); Neutrophils % (A) 92 %; Platelet Count 163 k/uL (150-450); RBC 3.49 m/uL (4.30-5.90); RDW 13.3 % (11.5-15.5); WBC 10.4 k/uL (3.8-10.6)
--- NOTE | 2019-11-02 11:00 | P.PN ---
Subjective This is a pleasant 84-year-old male past medical history significant for paroxysmal atrial fibrillation status post cardioversion not on long-term anticoagulation for unknown reason and BPH. He states he follows with Dr. Collins out of [facility]. Attempts were made to obtain records from his dehorner were unsuccessful. He is agreeable to start taking mcc anti- coagulation for thromboembolic protection. He denies chest pain, shortness of breath, dizziness or palpitations. He underwent laparoscopic cholecystectomy yesterday evening with Dr. Bal. VIVIAN drain in place. He states his abdomen is sore but not painful. Blood pressure 176/57 heart rate 70 afebrile and maintaining oxygen saturation on room air. GENERAL: Well-appearing, well-nourished and in no acute distress. NECK: Supple without JVD or thyromegaly. LUNGS: Breath sounds clear to auscultation bilaterally. Respiration equal and unlabored. No wheezes, rales or rhonchi. HEART: Regular rate and rhythm with systolic ejection murmur at the left sternal border, no rubs or gallops. S1 and S2 heard. EXTREMITIES: Normal range of motion, no edema. No clubbing or cyanosis. Peripheral pulses intact. ASSESSMENT Acute cholecystitis Paroxysmal atrial fibrillation status post cardioversion currently maintaining sinus mechanism. Not on terminologist anticoagulation for unknown reason. Systolic heart failure, unknown of chronicity. Awaiting old echo from his primary dehorner. Clinically euvolemic. Pulmonary hypertension PLAN Initiate losartan 25 mg daily secondary to cardiomyopathy. Continue sotalol as previously ordered. Recommend initiation of Eliquis 5 mg BID. Spoke with the patient and his daughter regarding this new medication and they verbalized they would like to wait and speak with his primary dehorner. He has an appointment December 01 from a cardiac perspective for discharge when appropriate per surgery. Nurse Practitioner note has been reviewed, I agree with a documented findings and plan of care. Patient was seen and examined. Objective - Vital Signs Vital signs: Vital Signs Temp 97.5 F L 11/02/19 04:59 Pulse 70 11/02/19 04:59 Resp 18 11/02/19 04:59 BP 176/57 11/02/19 04:59 Pulse Ox 95 11/02/19 04:59 Intake & Output 11/01/19 11/02/19 11/02/19 18:59 06:59 18:59 Intake Total 850 825 Output Total 20 220 Balance 830 605 Intake: IV 850 825 Sodium Chloride 0.9% 1, 825 000 ml @ 75 mls/hr IV . [id number] [facility] Rx#:[id number] Output: Drainage 120 Right Abdomen 120 Urine 100 Estimated Blood Loss 20 Other: Voiding Method Toilet Toilet # Voids 2 - Labs CBC & Chem 7: 11/02/19 10:10 11/02/19 10:10
--- NOTE | 2019-11-02 15:03 | P.PN ---
Subjective Progress Note Date: 11/02/19 Principal diagnosis: This is an 84-year-old male who was recently admitted with right upper quadrant abdominal pain and is being closely monitored. Surgery following. Patient also noted to have possible hydrops gallbladder. Abdominal ultrasound of the gallbladder was done showing sludge within along with a hytropic gallbladder and positive Sullivan's sign. Patient being seen and evaluated by cardiology for surgical clearance. Patient underwent an echocardiogram showing overall left ventricular systolic function is mild to moderately impaired with an EF between 40 and 45% along with some moderate mitral regurgitation and moderate to severe tricuspid regurgitation. Severe pulmonary hypertension also noted. Patient will need anticoagulation status post surgery for thromboembolic protection. Will await surgical report. Patient is scheduled to undergo cholecystectomy this afternoon with Dr. Bal. Will await report. Currently no reports of chest pain, shortness of breath, or palpitations. Patient is afebrile. No reports of nausea or vomiting and patient has been nothing by mouth. Review of systems: Constitutional: No reports of fevers or chills Cardiovascular: No reports of chest pain or palpitations Respiratory: No reports of shortness of breath or cough GI: No reports of nausea, vomiting, or diarrhea : No reports of dysuria or retention Neurological: No reports of weakness or numbness 11/02/2019 Patient is seen and evaluated in follow-up status post cholecystectomy with VIVIAN drain noted to have serosanguineous fluid. Patient is tolerating clear liquids and will be advanced to full liquids and has been up to the bathroom stating he is having bowel movements and urinating with no difficulties. No acute overnight issues. When discussing with the patient about discharge planning patient states he will be going home with family once discharged. Objective - Vital Signs Vital signs: Vital Signs Temp 98.7 F 11/02/19 11:42 Pulse 72 11/02/19 11:42 Resp 20 11/02/19 11:42 BP 112/46 11/02/19 11:42 Pulse Ox 94 L 11/02/19 11:42 Intake & Output 11/01/19 11/02/19 11/02/19 18:59 06:59 18:59 Intake Total 850 825 240 Output Total 20 220 Balance 830 605 240 Intake: IV 850 825 Sodium Chloride 0.9% 1, 825 000 ml @ 75 mls/hr IV . [id number] [facility] Rx#:[id number] Oral 240 Output: Drainage 120 Right Abdomen 120 Urine 100 Estimated Blood Loss 20 Other: Voiding Method Toilet Toilet # Voids 2 - Exam Gen: This is an 84-year-old male sitting up in bed awake, alert and oriented 3, well-developed, well-nourished. HEENT: Head is atraumatic, normocephalic. Pupils equal, round. Sclerae is anicteric. NECK: Supple. No JVD. No lymphadenopathy. No thyromegaly. LUNGS: Breath sounds diminished at the bases with no wheezing or rhonchi noted. No intercostal retractions. HEART: S1, S2 are muffled ABDOMEN: Soft. Nondistended, tenderness upon palpation of the right upper quadrant. No masses. VIVIAN drain noted EXTREMITIES: No pedal edema. No calf tenderness. NEUROLOGICAL: Patient is awake, alert and oriented x3. Cranial nerves 2 through 12 are grossly intact. - Labs CBC & Chem 7: 11/02/19 10:10 11/02/19 10:10 Labs: Abnormal Lab Results - Last 24 Hours (Table) 11/02/19 11/02/19 Range/Units 10:10 10:10 RBC 3.49 L (4.30-5.90) m/uL Hgb 11.6 L (13.0-17.5) gm/dL Hct 35.3 L (39.0-53.0) % MCV 101.1 H (80.0-100.0) fL Neutrophils # 9.6 H (1.3-7.7) k/uL Lymphocytes # 0.3 L (1.0-4.8) k/uL Chloride 108 H (98-107) mmol/L BUN 24 H (9-20) mg/dL Glucose 181 H (74-99) mg/dL Assessment and Plan Assessment: Right upper quadrant abdominal pain with acute cholecystitis and possibly hydrops gallbladder and cholelithiasis Status post laparoscopic cholecystectomy postop day #1 Hydrops gallbladder with sludge, as noted on ultrasound History of cardiac irregularity and atrial fibrillation, paroxysmal Mild hyponatremia Mild hypercalcemia increased random blood sugar history of prostate issues Atelectasis on the chest x-ray Full code Recommendations and discussion: Recommend to continue current medications, management, and symptomatic treatment. Cardiology along with surgery following. Patient underwent laparoscopic cholecystectomy yesterday with Dr. Bal. Patient has been tolerating clear liquids and being advance to full liquids. Cardiology evaluat ed the patient and will need anticoagulation along with makayla/arb initiated status post surgery. Cardiology recommend starting anticoagulation this evening or tomorrow and family would like to consult with his fabric stretcher about Eliquis. Will continue to follow along closely with surgery. Continue with DVT prophylaxis in the form of heparin subq along with empiric antibiotic at this time. Further recommendations to follow.
[2019-11-02] MEDS: MONTELUKAST 10 MG TAB PO SCH (20:05)
[2019-11-02] MEDS: DOXAZOSIN 2 MG TAB PO SCH (20:05)
[2019-11-03 04:43] VITALS: BP 136/71; PULSE 70; RESP 20; TEMP 97.6
[2019-11-03] MEDS: SODIUM CHLORIDE 0.9% 1,000 ML IV SCH (07:38)
[2019-11-03] MEDS: LOSARTAN 25 MG TAB PO SCH (07:41)
[2019-11-03] MEDS: MULTIVITAMINS, THERA 1 EACH TAB PO SCH (07:41)
[2019-11-03] MEDS: PANTOPRAZOLE 40 MG/10 ML VIAL IVP SCH (07:41)
[2019-11-03] MEDS: FINASTERIDE 5 MG TAB PO SCH (07:41)
[2019-11-03] MEDS: HEPARIN SODIUM,PORCINE 5,000 UNIT/ML 1 ML VIAL SQ SCH (07:41)
[2019-11-03] MEDS: ALPRAZolam 0.5 MG TAB PO SCH (07:41)
[2019-11-03] MEDS: SOTALOL 80 MG TAB PO SCH (07:42)
--- NOTE | 2019-11-03 10:28 | P.DS ---
Providers Date of admission: 10/31/19 12:34 Expected date of discharge: 11/03/19 Attending physician: Fred Bal Consults: 10/30/19 15:05 Consult Physician Routine Consulting Provider: Becka Tuttle Consult Reason/Comments: medicine consult Do you want consulting provider notified?: Yes 10/31/19 08:10 Consult Physician Routine Consulting Provider: Tia Jaimes Consult Reason/Comments: cardiac clearance for OR Do you want consulting provider notified?: Yes Primary care physician: Grupo Stevenson - Discharge Diagnosis(es) (1) Acute cholecystitis due to biliary calculus 9-year-old male admitted for acute cholecystitis. Underwent cholecystectomy 2 days ago. Was seen by hospitalist and cardiology. Postoperative the patient is doing well. Abdomen soft nondistended, mild tenderness, incisions clean and dry, VIVIAN drains dressings. We'll discharge once cleared by consultants. Remove drain prior to discharge. Follow-up one week. Current Visit: Yes Status: Acute Patient Condition at Discharge: Fair Plan - Discharge Summary Discharge Rx Participant: No New Discharge Prescriptions: New Hydrocodone/Acetaminophen [Custer 5-325] 1 tab PO Q6HR PRN #10 tab PRN Reason: Pain No Action Terazosin [Hytrin] 2 mg PO HS Finasteride [Proscar] 5 mg PO DAILY ALPRAZolam [Xanax] 0.5 mg PO BID Sotalol [Betapace] 80 mg PO BID Montelukast [Singulair] 10 mg PO HS Multivitamins, Thera [Multivitamin (formulary)] 1 tab PO DAILY Discharge Medication List ALPRAZolam [Xanax] 0.5 mg PO BID 10/30/19 [History] Finasteride [Proscar] 5 mg PO DAILY 10/30/19 [History] Montelukast [Singulair] 10 mg PO HS 10/30/19 [History] Multivitamins, Thera [Multivitamin (formulary)] 1 tab PO DAILY 10/30/19 [History] Sotalol [Betapace] 80 mg PO BID 10/30/19 [History] Terazosin [Hytrin] 2 mg PO HS 10/30/19 [History] Hydrocodone/Acetaminophen [Custer 5-325] 1 tab PO Q6HR PRN #10 tab 11/02/19 [Rx] Follow up Appointment(s)/Referral(s): Fred Bal MD [Medical Doctor] - 1 Week Grupo Stevenson DO [Primary Care Provider] - 1-2 days Tia Jaimes MD [STAFF PHYSICIAN] - 11/11/19 10:45 am Activity/Diet/Wound Care/Special Instructions: No driving while taking Custer No lifting over 10 pounds You may shower. No soaking or tub baths Very light activity until you are reevaluated at your follow up appointment with your surgeon Keep a log of VIVIAN drain output and bring with you to your follow up appointment
--- NOTE | 2019-11-03 13:56 | P.PN ---
Subjective Progress Note Date: 11/03/19 Principal diagnosis: This is an 84-year-old male who was recently admitted with right upper quadrant abdominal pain and is being closely monitored. Surgery following. Patient also noted to have possible hydrops gallbladder. Abdominal ultrasound of the gallbladder was done showing sludge within along with a hytropic gallbladder and positive Sullivan's sign. Patient being seen and evaluated by cardiology for surgical clearance. Patient underwent an echocardiogram showing overall left ventricular systolic function is mild to moderately impaired with an EF between 40 and 45% along with some moderate mitral regurgitation and moderate to severe tricuspid regurgitation. Severe pulmonary hypertension also noted. Patient will need anticoagulation status post surgery for thromboembolic protection. Will await surgical report. Patient is scheduled to undergo cholecystectomy this afternoon with Dr. Bal. Will await report. Currently no reports of chest pain, shortness of breath, or palpitations. Patient is afebrile. No reports of nausea or vomiting and patient has been nothing by mouth. Review of systems: Constitutional: No reports of fevers or chills Cardiovascular: No reports of chest pain or palpitations Respiratory: No reports of shortness of breath or cough GI: No reports of nausea, vomiting, or diarrhea : No reports of dysuria or retention Neurological: No reports of weakness or numbness 11/02/2019 Patient is seen and evaluated in follow-up status post cholecystectomy with VIVIAN drain noted to have serosanguineous fluid. Patient is tolerating clear liquids and will be advanced to full liquids and has been up to the bathroom stating he is having bowel movements and urinating with no difficulties. No acute overnight issues. When discussing with the patient about discharge planning patient states he will be going home with family once discharged. 11/03/2019 Patient is seen and evaluated in follow-up today and recently underwent cholecystectomy with Dr. Bal. Patient continues to have VIVIAN drain noted with less output is currently awaiting for VIVIAN drain to be removed. Is tolerating diet with no reports of nausea or vomiting. Patient has been passing gas and having bowel movements. Patient scheduled to go home today. Patient was i nitiated on valsartan and will continue for slightly elevated blood pressure. Discussed with the patient and family about starting Eliquis per cardiology recommendations for atrial fibrillation and family would like to discuss with their cardiology prior to starting an anticoagulant. No reports of chest pain, shortness of breath, or palpitations. Patient is afebrile. Objective - Vital Signs Vital signs: Vital Signs Temp 97.6 F 11/03/19 04:41 Pulse 70 11/03/19 08:00 Resp 20 11/03/19 08:00 BP 136/71 11/03/19 04:41 Pulse Ox 96 11/03/19 04:41 Intake & Output 11/02/19 11/03/19 11/03/19 18:59 06:59 18:59 Intake Total 480 1500 360 Output Total 170 40 70 Balance 310 1460 290 Intake: IV 300 Sodium Chloride 0.9% 1, 300 000 ml @ 75 mls/hr IV . [id number] [facility] Rx#:[id number] Intake, IV Titration 600 Amount Sodium Chloride 0.9% 1, 600 000 ml @ 75 mls/hr IV . [id number] [facility] Rx#:[id number] Oral 480 600 360 Output: Drainage 70 40 70 Right Abdomen 70 40 70 Urine 100 Other: Voiding Method Toilet Toilet Toilet # Voids 1 1 - Exam Gen: This is an 84-year-old male sitting up in bed awake, alert and oriented 3, well-developed, well-nourished. HEENT: Head is atraumatic, normocephalic. Pupils equal, round. Sclerae is anicteric. NECK: Supple. No JVD. No lymphadenopathy. No thyromegaly. LUNGS: Breath sounds diminished at the bases with no wheezing or rhonchi noted. No intercostal retractions. HEART: S1, S2 are muffled ABDOMEN: Soft. Nondistended, tenderness upon palpation of the right upper quadrant. No masses. VIVIAN drain noted currently being removed EXTREMITIES: No pedal edema. No calf tenderness. NEUROLOGICAL: Patient is awake, alert and oriented x3. Cranial nerves 2 through 12 are grossly intact. - Labs CBC & Chem 7: 11/02/19 10:10 11/02/19 10:10 Assessment and Plan Assessment: Right upper quadrant abdominal pain with acute cholecystitis and possibly hy drops gallbladder and cholelithiasis Status post laparoscopic cholecystectomy postop day #2 Hydrops gallbladder with sludge, as noted on ultrasound History of cardiac irregularity and atrial fibrillation, paroxysmal Mild hyponatremia Mild hypercalcemia increased random blood sugar history of prostate issues Atelectasis on the chest x-ray Full code Recommendations and discussion: Recommend to continue current medications, management, and symptomatic treatment. Patient underwent laparoscopic cholecystectomy with Dr. Bal. VIVIAN drain being removed. Patient tolerating diet. Cardiology evaluated the patient and will need anticoagulation along with makayla/arb initiated status post surgery. Losartan was started. Cardiology recommend starting anticoagulation and family would like to consult with his internet security specialist about Eliquis prior to initiation. Will continue to follow along closely with surgery. Further recommendations to follow. Patient is scheduled to be discharged today.
== END 2019-11-03 14:35 | disposition home or self-care (01) | DRG 418 ==
LOC: EC 11:56 → 5NMEDONC 14:57 → OBSVTOIN 10-31 12:34 → 5NMEDONC 11-02 19:58
PROVIDERS: ADMIT Surgery; ATTEND Surgery
PROC: 0FT44ZZ Resection of Gallbladder, Percutaneous Endoscopic Approach (ICD-10-PCS; principal; 2019-11-01 07:30)
DX: K80.00 Calculus of gallbladder with acute cholecystitis without obstruction (principal); E87.1 Hypo-osmolality and hyponatremia; K82.1 Hydrops of gallbladder; J98.11 Atelectasis; I50.20 Unspecified systolic (congestive) heart failure; E83.52 Hypercalcemia; E86.0 Dehydration; I08.1 Rheumatic disorders of both mitral and tricuspid valves; I11.0 Hypertensive heart disease with heart failure; I27.20 Pulmonary hypertension, unspecified; I44.7 Left bundle-branch block, unspecified; I48.0 Paroxysmal atrial fibrillation; N40.1 Benign prostatic hyperplasia with lower urinary tract symptoms; Z79.899 Other long term (current) drug therapy; Z87.891 Personal history of nicotine dependence; Z11.59 Encounter for screening for other viral diseases
CPT/HCPCS: 36415; 71045; 74022; 76700; 80048; 80053; 83690; 83735; 85025; 87635; 88304; 93005; 93306; 99285

== ENCOUNTER 2020-09-20 03:29 | Emergency (ER) | payer MEDICARE, BC ==
[2020-09-20 03:36] VITALS: RESP 18
--- NOTE | 2020-09-20 04:22 | ED ---
Arrhythmia/Palpitations HPI - General Chief Complaint: Arrhythmia/Palpitations Stated Complaint: SOB BP IS HIGH. Time Seen by Provider: 09/20/20 04:09 Source: patient Mode of arrival: wheelchair Limitations: no limitations - History of Present Illness Initial Comments: This patient is an 85-year-old man who presents to be evaluated for palpitations and left arm pain. The patient states that he had received his covert 19 vaccination in the left arm 2 days ago. He states that that night the arm was sore and every time he attempted to turn to his left when he was sleeping at would wake him up. He states is consequence he did not sleep well. Tonight he was having difficulty getting sleep and when his blood pressure was checked it was greater than 190. The patient also with having palpitations. Given all that was going on the patient's family felt he should be evaluated here. The patient denies chest pain or dyspnea. No abdominal pain, nausea or vomiting. No fever or chills. Patient believes that the blood pressure was related to anxiety, and feels better here already. MD Complaint: palpitations -: hour(s) Context: occurred during rest Arrhythmia History: atrial fibrillation Associated Symptoms: other - Related Data Home Medications Medication Instructions Recorded Confirmed ALPRAZolam [Xanax] 0.5 mg PO BID 10/30/19 10/30/19 Finasteride [Proscar] 5 mg PO DAILY 10/30/19 10/30/19 Montelukast [Singulair] 10 mg PO HS 10/30/19 10/30/19 Multivitamins, Thera [Multivitamin 1 tab PO DAILY 10/30/19 10/30/19 (formulary)] Sotalol [Betapace] 80 mg PO BID 10/30/19 10/30/19 Terazosin [Hytrin] 2 mg PO HS 10/30/19 10/30/19 Previous Rx's Medication Instructions Recorded Hydrocodone/Acetaminophen [[place] 1 tab PO Q6HR PRN #10 tab 11/02/19 5-325] Losartan [Cozaar] 25 mg PO DAILY #90 tab 11/03/19 Allergies Allergy/AdvReac Type Severity Reaction Status Date / Time Sulfa (Sulfonamide Allergy Rash/Hives Verified 09/20/20 03:36 Antibiotics) Review of Systems ROS Statement: Those systems with pertinent positive or pertinent negative responses have been documented in the HPI. ROS Other: All systems not noted in ROS Statement are negative. Constitutional: Denies: fever, chills Respiratory: Denies: cough, dyspnea Cardiovascular: Reports: palpitations. Denies: chest pain, orthopnea, edema, syncope Gastrointestinal: Denies: abdominal pain, nausea, vomiting Genitourinary: Denies: dysuria, hematuria Musculoskeletal: Reports: as per HPI, myalgia. Denies: back pain Skin: Denies: rash Neurological: Denies: headache, weakness, numbness Psychiatric: Reports: anxiety Past Medical History Past Medical History: Atrial Fibrillation, Hypertension, Prostate Disorder History of Any Multi-Drug Resistant Organisms: None Reported Past Surgical History: Hernia Repair Past Anesthesia/Blood Transfusion Reactions: No Reported Reaction Past Psychological History: No Psychological Hx Reported Smoking Status: Former smoker Past Alcohol Use History: Unable to Obtain Past Drug Use History: None Reported - Past Family History Mother Family Medical History: No Reported History General Exam Limitations: no limitations General appearance: alert, in no apparent distress Head exam: Present: atraumatic, normocephalic Eye exam: Present: normal appearance. Absent: scleral icterus, conjunctival injection Neck exam: Present: normal inspection, full ROM Respiratory exam: Present: normal lung sounds bilaterally. Absent: respiratory distress, wheezes, rales, rhonchi, stridor, chest wall tenderness, accessory muscle use Cardiovascular Exam: Present: regular rate, irregular rhythm, normal heart sounds. Absent: systolic murmur, diastolic murmur, rubs, gallop GI/Abdominal exam: Present: soft. Absent: distended, tenderness, guarding, rebound, rigid, mass Extremities exam: Present: normal inspection, normal capillary refill, other (Mild tenderness of the left deltoid. There is no erythema, warmth or other evidence of infection). Absent: pedal edema, calf tenderness Back exam: Present: normal inspection Neurological exam: Present: alert Skin exam: Present: warm, dry, intact, normal color. Absent: rash Course Vital Signs 09/20/20 09/20/20 03:31 05:11 Temperature 97 F L Pulse Rate 63 59 L Respiratory 18 18 Rate Blood Pressure 151/77 110/68 O2 Sat by Pulse 97 97 Oximetry EKG Findings - EKG Results: EKG: interpreted by ERMD, sinus rhythm (With frequent PVCs, rate 64 bpm), normal axis, normal QRS, normal ST/T - Blocks, [place], Hypertrophy, ST Abn: Chamber hypertrophy or enlargement: only voltage criteria for left ventricular hypertrophy Medical Decision Making - Medical Decision Making Reviewed x-ray findings with patient and family. Patient not having any symptoms or sign of pneumonia, believe this more veterans contact representative of atelectasis. He is feeling well and would like to go home and follow with his physician. In addition he has an already scheduled appointment with his account specialist this week. Patient will return for any new symptoms or worsening in anyway. - Lab Data Result diagrams: 09/20/20 03:47 09/20/20 03:47 Lab Results 09/20/20 09/20/20 09/20/20 Range/Units 03:47 03:47 03:47 WBC 3.6 L (3.8-10.6) k/uL RBC 3.94 L (4.30-5.90) m/uL Hgb 12.9 L (13.0-17.5) gm/dL Hct 38.6 L (39.0-53.0) % MCV 97.9 (80.0-100.0) fL MCH 32.6 (25.0-35.0) pg MCHC 33.3 (31.0-37.0) g/dL RDW 13.2 (11.5-15.5) % Plt Count 162 (150-450) k/uL MPV 8.6 Neutrophils % 58 % Lymphocytes % 23 % Monocytes % 16 % Eosinophils % 1 % Basophils % 0 % Neutrophils # 2.1 (1.3-7.7) k/uL Lymphocytes # 0.8 L (1.0-4.8) k/uL Monocytes # 0.6 (0-1.0) k/uL Eosinophils # 0.1 (0-0.7) k/uL Basophils # 0.0 (0-0.2) k/uL PT 10.3 (9.0-12.0) sec INR 1.0 (<1.2) APTT 26.0 (22.0-30.0) sec Sodium 139 (137-145) mmol/L Potassium 4.0 (3.5-5.1) mmol/L Chloride 106 (98-107) mmol/L Carbon Dioxide 25 (22-30) mmol/L Anion Gap 8 mmol/L BUN 29 H (9-20) mg/dL Creatinine 1.26 H (0.66-1.25) mg/dL Est GFR (CKD-EPI)AfAm 60 (>60 ml/min/1.73 sqM) Est GFR (CKD-EPI)NonAf 52 (>60 ml/min/1.73 sqM) Glucose 92 (74-99) mg/dL Calcium 10.0 (8.4-10.2) mg/dL Magnesium 2.0 (1.6-2.3) mg/dL Total Bilirubin 0.7 (0.2-1.3) mg/dL AST 34 (17-59) U/L ALT 23 (4-49) U/L Alkaline Phosphatase 82 (38-126) U/L Troponin I (0.000-0.034) ng/mL Total Protein 6.7 (6.3-8.2) g/dL Albumin 4.1 (3.5-5.0) g/dL 09/20/20 Range/Units 03:47 WBC (3.8-10.6) k/uL RBC (4.30-5.90) m/uL Hgb (13.0-17.5) gm/dL Hct (39.0-53.0) % MCV (80.0-100.0) fL MCH (25.0-35.0) pg MCHC (31.0-37.0) g/dL RDW (11.5-15.5) % Plt Count (150-450) k/uL MPV Neutrophils % % Lymphocytes % % Monocytes % % Eosinophils % % Basophils % % Neutrophils # (1.3-7.7) k/uL Lymphocytes # (1.0-4.8) k/uL Monocytes # (0-1.0) k/uL Eosinophils # (0-0.7) k/uL Basophils # (0-0.2) k/uL PT (9.0-12.0) sec INR (<1.2) APTT (22.0-30.0) sec Sodium (137-145) mmol/L Potassium (3.5-5.1) mmol/L Chloride (98-107) mmol/L Carbon Dioxide (22-30) mmol/L Anion Gap mmol/L BUN (9-20) mg/dL Creatinine (0.66-1.25) mg/dL Est GFR (CKD-EPI)AfAm (>60 ml/min/1.73 sqM) Est GFR (CKD-EPI)NonAf (>60 ml/min/1.73 sqM) Glucose (74-99) mg/dL Calcium (8.4-10.2) mg/dL Magnesium (1.6-2.3) mg/dL Total Bilirubin (0.2-1.3) mg/dL AST (17-59) U/L ALT (4-49) U/L Alkaline Phosphatase (38-126) U/L Troponin I <0.012 (0.000-0.034) ng/mL Total Protein (6.3-8.2) g/dL Albumin (3.5-5.0) g/dL Disposition Clinical Impression: Palpitations, Myalgia after COVID-19 vaccination Disposition: HOME SELF-CARE Condition: Good Instructions (If sedation given, give patient instructions): Heart Palpitations (ED) Is patient prescribed a controlled substance at d/c from ED?: No Referrals: Grupo Stevenson DO [Primary Care Provider] - 1-2 days
[2020-09-20 04:36] LABS: Basophils % (A) 0 %; Eosinophils # (A) 0.1 k/uL (0-0.7); Eosinophils % (A) 1 %; HCT 38.6 % (39.0-53.0); HGB 12.9 gm/dL (13.0-17.5); Lymphocytes # (A) 0.8 k/uL (1.0-4.8); Lymphocytes % (A) 23 %; MCH 32.6 pg (25.0-35.0); MCHC 33.3 g/dL (31.0-37.0); MCV 97.9 fL (80.0-100.0); Mean Platelet Volume 8.6; Monocytes # (A) 0.6 k/uL (0-1.0); Monocytes % (A) 16 %; Neutrophils # (A) 2.1 k/uL (1.3-7.7); Neutrophils % (A) 58 %; Platelet Count 162 k/uL (150-450); RBC 3.94 m/uL (4.30-5.90); RDW 13.2 % (11.5-15.5); WBC 3.6 k/uL (3.8-10.6)
[2020-09-20 04:45] LABS: Prothrombin Time 10.3 sec (9.0-12.0)
[2020-09-20 04:52] LABS: Albumin 4.1 g/dL (3.5-5.0); Total Bilirubin 0.7 mg/dL (0.2-1.3); Total Protein 6.7 g/dL (6.3-8.2)
--- NOTE | 2020-09-20 05:27 | XR ---
EXAM: XR Chest, 1 View CLINICAL HISTORY: dysrhythmia TECHNIQUE: Frontal view of the chest. COMPARISON: 11/27/2019. FINDINGS: Lungs: Left basilar atelectasis and/or infiltrates. Pleural space: Unremarkable. No pneumothorax. Heart: Unremarkable. No cardiomegaly. Mediastinum: Unremarkable. Bones/joints: Unremarkable. IMPRESSION: Left basilar atelectasis and/or infiltrates. PA and lateral views of the chest may be obtained for further evaluation.
[2020-09-20 05:50] VITALS: BP 139/71; PULSE 64; TEMP 98
== END 2020-09-20 05:50 | disposition home or self-care (01) ==
LOC: EC 03:29 → SUPCPDRO 03:29 → EC 05:50
DX: R00.2 Palpitations (principal); M79.10 Myalgia, unspecified site; I48.91 Unspecified atrial fibrillation; I10 Essential (primary) hypertension; Z79.899 Other long term (current) drug therapy; Z88.2 Allergy status to sulfonamides; Z87.891 Personal history of nicotine dependence
CPT/HCPCS: 36415; 71045; 80053; 83735; 84484; 85025; 85610; 85730; 93005; 99285

== ENCOUNTER 2021-12-23 07:01 | Inpatient (IN) | payer MEDICARE, BC ==
[2021-12-23] MEDS ORDERED: SODIUM CHLORIDE 0.9% 500 ML 500 ML IV STA (07:29)
[2021-12-23] MEDS ORDERED: ASPIRIN 81 MG PO STA (07:29)
[2021-12-23 07:49] LABS: Basophils # (A) 0.1 k/uL (0-0.2); Basophils % (A) 1 %; Eosinophils # (A) 0.2 k/uL (0-0.7); Eosinophils % (A) 3 %; HCT 36.8 % (39.0-53.0); HGB 12.2 gm/dL (13.0-17.5); Lymphocytes # (A) 0.9 k/uL (1.0-4.8); Lymphocytes % (A) 14 %; MCH 33.4 pg (25.0-35.0); MCHC 33.3 g/dL (31.0-37.0); MCV 100.4 fL (80.0-100.0); Mean Platelet Volume 9.2; Monocytes # (A) 0.4 k/uL (0-1.0); Monocytes % (A) 6 %; Neutrophils # (A) 4.9 k/uL (1.3-7.7); Neutrophils % (A) 74 %; Platelet Count 161 k/uL (150-450); RBC 3.67 m/uL (4.30-5.90); RDW 12.9 % (11.5-15.5); WBC 6.6 k/uL (3.8-10.6)
--- NOTE | 2021-12-23 07:56 | ED ---
General Adult HPI - General Chief complaint: Arrhythmia/Palpitations Stated complaint: palpitations Time Seen by Provider: 12/23/21 07:22 Source: patient, family, RN notes reviewed, old records reviewed Mode of arrival: wheelchair Limitations: no limitations - History of Present Illness Initial comments: Patient is an 86-year-old male with past medical history remarkable for hypertension, atrial fibrillation, prostate disorder who presents emergency D epartment concern for symptoms that he expressed last night. At approximately 10 PM last night, patient felt a chest fluttering feeling and then had bilateral arm tingling. That resolved at home after approximately 30-45 minutes. He went to sleep, and then contacted his daughter this morning who instructed him to come the emergency department for further evaluation. She has not states that the symptoms came back, however the patient states that the symptoms have not come back. Denies any current symptoms include chest pain, shortness breath, nausea, vomiting, abdominal pain. Patient is on a blood thinner for his atrial flutter ablation. Denies any recent falls. Denies any difficulty with urinating or stooling. His no other acute complaint at this time. No history of lower extremity edema. Presents for further evaluation. States he has a history of atrial fibrillation as well as PVCs. - Related Data Home Medications Medication Instructions Recorded Confirmed ALPRAZolam [Xanax] 0.5 mg PO BID 10/30/19 10/30/19 Finasteride [Proscar] 5 mg PO DAILY 10/30/19 10/30/19 Montelukast [Singulair] 10 mg PO HS 10/30/19 10/30/19 Multivitamins, Thera [Multivitamin 1 tab PO DAILY 10/30/19 10/30/19 (formulary)] Sotalol [Betapace] 80 mg PO BID 10/30/19 10/30/19 Terazosin [Hytrin] 2 mg PO HS 10/30/19 10/30/19 Previous Rx's Medication Instructions Recorded Hydrocodone/Acetaminophen [[place] 1 tab PO Q6HR PRN #10 tab 11/02/19 5-325] Losartan [Cozaar] 25 mg PO DAILY #90 tab 11/03/19 Allergies Allergy/AdvReac Type Severity Reaction Status Date / Time Sulfa (Sulfonamide Allergy Rash/Hives Verified 12/23/21 07:11 Antibiotics) Review of Systems ROS Statement: Those systems with pertinent positive or pertinent negative responses have been documented in the HPI. Review of Systems: CONST: Denies fever EYES: Denies blurry vision ENT: Denies nasal congestion C/V: Denies Chest pain RESP: Denies shortness of breath GI: Denies abdominal pain : Denies dysuria SKIN: Denies rash. MSK: Denies joint pain. NEURO: Denies headache ROS Other: All systems not noted in ROS Statement are negative. Past Medical History Past Medical History: Atrial Fibrillation, Hypertension, Prostate Disorder History of Any Multi-Drug Resistant Organisms: None Reported Past Surgical History: Cholecystectomy, Hernia Repair Past Anesthesia/Blood Transfusion Reactions: No Reported Reaction Past Psychological History: Anxiety Smoking Status: Former smoker Past Alcohol Use History: None Reported Past Drug Use History: None Reported - Past Family History Mother Family Medical History: No Reported History General Exam - General Exam Comments Initial Comments: General: Appears in no acute distress. HEAD: Normal with no signs of head trauma. EYES: PERRLA, EOMI, conjunctiva normal, no discharge. ENT: Hearing grossly intact, normal oropharynx. RESPIRATORY: Clear breath sounds bilaterally. No wheezes, rales, or rhonchi. C/V: Irregular rate and rhythm. S1 and S2 auscultated. No peripheral edema. Peripheral pulses are 2+ and intact throughout. ABD: Abd is soft, nontender, nondistended EXT: Normal range of motion, no obvious deformity SKIN: No rashes or lesions observed on exposed skin. NEURO: Alert and oriented x 4. Cranial nerves II-XII intact. No focal sensory or strength deficits. NIH of 0. GCS is 15. Patient can ambulate without difficulty. Limitations: no limitations Course Vital Signs 12/23/21 12/23/21 07:07 09:58 Temperature 97.2 F L Pulse Rate 59 L 75 Respiratory 16 16 Rate Blood Pressure 112/65 119/68 O2 Sat by Pulse 99 98 Oximetry Medical Decision Making - Medical Decision Making Abdomen the patient's presentation and physical exam, he presents for pal pitations and bilateral arm tingling that occurred last night. No recent symptoms. Does have a significant cardiac history. We'll obtain cardiac labs as well as basic labs and urinalysis. He will be admitted and aspirin as well as IV fluids. He was in agreement this plan. Vital signs are within normal limits and stable at this time. EKG shows intermittent PVCs with no signs of acute ischemia. This is similar to prior EKGs.Patient's laboratory studies were remarkable for a macrocytic anemia with a hemoglobin of 12.2 which appears to be stable now his baseline. Patient has a slight AK I with an elevated BUNs of 34 and creatinine of 1.46 which is about baseline. Troponin is slightly elevated to 0.084. Remainder of the labs are unremarkable including a normal urinalysis. Chest x-ray shows no acute cardiopulmonary process. On reevaluation, patient remains asymptomatic. I did update him on the results of his laboratory studies and imaging. I express desire to admit him to the hospital for cardiac monitoring. His elevated troponin could be secondary to CAROLYN versus cardiac etiology. He was in agreement this plan. We will continue his home L [place] at this time I spoke with the admitting physician, Dr. bryson who accepted the patient patient patient was admitted in stable condition. - Lab Data Result diagrams: 12/23/21 07:40 12/23/21 07:40 Lab Results 12/23/21 12/23/21 12/23/21 Range/Units 07:40 07:40 07:40 WBC 6.6 (3.8-10.6) k/uL RBC 3.67 L (4.30-5.90) m/uL Hgb 12.2 L (13.0-17.5) gm/dL Hct 36.8 L (39.0-53.0) % MCV 100.4 H (80.0-100.0) fL MCH 33.4 (25.0-35.0) pg MCHC 33.3 (31.0-37.0) g/dL RDW 12.9 (11.5-15.5) % Plt Count 161 (150-450) k/uL MPV 9.2 Neutrophils % 74 % Lymphocytes % 14 % Monocytes % 6 % Eosinophils % 3 % Basophils % 1 % Neutrophils # 4.9 (1.3-7.7) k/uL Lymphocytes # 0.9 L (1.0-4.8) k/uL Monocytes # 0.4 (0-1.0) k/uL Eosinophils # 0.2 (0-0.7) k/uL Basophils # 0.1 (0-0.2) k/uL PT 11.1 (9.0-12.0) sec INR 1.0 (<1.2) APTT 26.6 (22.0-30.0) sec Sodium (137-145) mmol/L Potassium (3.5-5.1) mmol/L Chloride (98-107) mmol/L Carbon Dioxide (22-30) mmol/L Anion Gap mmol/L BUN (9-20) mg/dL Creatinine (0.66-1.25) mg/dL Est GFR (CKD-EPI)AfAm (>60 ml/min/1.73 sqM) Est GFR (CKD-EPI)NonAf (>60 ml/min/1.73 sqM) Glucose (74-99) mg/dL Calcium (8.4-10.2) mg/dL Magnesium (1.6-2.3) mg/dL Total Bilirubin (0.2-1.3) mg/dL AST (17-59) U/L ALT (4-49) U/L Alkaline Phosphatase (38-126) U/L Troponin I (0.000-0.034) ng/mL Total Protein (6.3-8.2) g/dL Albumin (3.5-5.0) g/dL Urine Color Light Yellow Urine Appearance Clear (Clear) Urine pH 6.0 (5.0-8.0) Ur Specific [place] 1.009 (1.001-1.035) Urine Protein Negative (Negative) Urine Glucose (UA) Negative (Negative) Urine Ketones Negative (Negative) Urine Blood Negative (Negative) Urine Nitrite Negative (Negative) Urine Bilirubin Negative (Negative) Urine Urobilinogen <2.0 (<2.0) mg/dL Ur Leukocyte Esterase Negative (Negative) 12/23/21 12/23/21 Range/Units 07:40 07:40 WBC (3.8-10.6) k/uL RBC (4.30-5.90) m/uL Hgb (13.0-17.5) gm/dL Hct (39.0-53.0) % MCV (80.0-100.0) fL MCH (25.0-35.0) pg MCHC (31.0-37.0) g/dL RDW (11.5-15.5) % Plt Count (150-450) k/uL MPV Neutrophils % % Lymphocytes % % Monocytes % % Eosinophils % % Basophils % % Neutrophils # (1.3-7.7) k/uL Lymphocytes # (1.0-4.8) k/uL Monocytes # (0-1.0) k/uL Eosinophils # (0-0.7) k/uL Basophils # (0-0.2) k/uL PT (9.0-12.0) sec INR (<1.2) APTT (22.0-30.0) sec Sodium 137 (137-145) mmol/L Potassium 4.6 (3.5-5.1) mmol/L Chloride 108 H (98-107) mmol/L Carbon Dioxide 24 (22-30) mmol/L Anion Gap 5 mmol/L BUN 34 H (9-20) mg/dL Creatinine 1.46 H (0.66-1.25) mg/dL Est GFR (CKD-EPI)AfAm 50 (>60 ml/min/1.73 sqM) Est GFR (CKD-EPI)NonAf 43 (>60 ml/min/1.73 sqM) Glucose 110 H (74-99) mg/dL Calcium 9.3 (8.4-10.2) mg/dL Magnesium 2.2 (1.6-2.3) mg/dL Total Bilirubin 0.9 (0.2-1.3) mg/dL AST 32 (17-59) U/L ALT 15 (4-49) U/L Alkaline Phosphatase 57 (38-126) U/L Troponin I 0.084 H* (0.000-0.034) ng/mL Total Protein 6.3 (6.3-8.2) g/dL Albumin 3.8 (3.5-5.0) g/dL Urine Color Urine Appearance (Clear) Urine pH (5.0-8.0) Ur Specific [place] (1.001-1.035) Urine Protein (Negative) Urine Glucose (UA) (Negative) Urine Ketones (Negative) Urine Blood (Negative) Urine Nitrite (Negative) Urine Bilirubin (Negative) Urine Urobilinogen (<2.0) mg/dL Ur Leukocyte Esterase (Negative) - EKG Data -: EKG Interpreted by Me EKG Comments: 12-lead Electrocardiogram Interpretation Note EKG was reviewed and interpreted by myself. 12-lead ECG performed at 0728 is interpreted by me as revealing atrial fibrillation with frequent PVCs at a rate of 80 beats per minute. [place] is normal. MO interval is unobtainable, QRS duration is 117 ms, QTc is 433 ms.. There were no ST or T wave abnormalities to suggest myocardial ischemia or injury. R wave progression across the precordium was satisfactory. By my interpretation this EKG is non-diagnostic for acute ischemia. Patient shows similar EKG compared to prior, with frequent PVCs. Disposition Clinical Impression: Elevated troponin, CAROLYN (acute kidney injury), History of atrial fibrillation Disposition: ADMITTED IP TO THIS HOSP Condition: Stable Is patient prescribed a controlled substance at d/c from ED?: No Time of Disposition: 09:00
[2021-12-23 07:57] LABS: Albumin 3.8 g/dL (3.5-5.0); Calcium 9.3 mg/dL (8.4-10.2); Magnesium 2.2 mg/dL (1.6-2.3); Potassium 4.6 mmol/L (3.5-5.1); Total Bilirubin 0.9 mg/dL (0.2-1.3); Total Protein 6.3 g/dL (6.3-8.2)
[2021-12-23 08:02] LABS: Partial Thromboplastin Time 26.6 sec (22.0-30.0); Prothrombin Time 11.1 sec (9.0-12.0)
--- NOTE | 2021-12-23 08:20 | XR ---
EXAMINATION TYPE: XR chest 2V DATE OF EXAM: 12/23/2021 COMPARISON: 09/20/2020 HISTORY: Shortness of breath TECHNIQUE: Frontal and lateral views of the chest are obtained. FINDINGS: Scattered senescent parenchymal changes noted. Hyperinflation compatible with COPD. No evidence for infiltrate. No evidence for atelectasis. Heart size is stable. Mediastinal structures are stable and grossly unremarkable. No evidence for hilar prominence. Degenerative changes dorsal spine. IMPRESSION: 1. No evidence for acute pulmonary disease.
[2021-12-23 08:26] LABS: Appearance,Urine Clear (Clear); Bilirubin,Urine Negative (Negative); Blood,Urine Negative (Negative); Color,Urine Light Yellow; Glucose,Urine (UA) Negative (Negative); Ketones,Urine Negative (Negative); Leukocyte Esterase,Urine Negative (Negative); Nitrite,Urine Negative (Negative); Protein,Urine Negative (Negative); Specific Gravity,Urine 1.009 (1.001-1.035); Urobilinogen,Urine <2.0 mg/dL (<2.0)
[2021-12-23] MEDS ORDERED: NALOXONE 0.4 MG/ML 1 ML VIAL IV PRN (09:06)
[2021-12-23] MEDS ORDERED: SODIUM CHLORIDE 0.9% 1,000 ML IV STA (10:59)
[2021-12-23] MEDS: SOTALOL 80 MG TAB PO SCH ×2 (16:41→23:33)
[2021-12-23] MEDS: APIXABAN 2.5 MG TABLET PO SCH (20:31)
[2021-12-23] MEDS: ALPRAZolam 0.5 MG TAB PO SCH (20:31)
[2021-12-23] MEDS ORDERED: SOTALOL 80 MG TAB PO SCH (21:00)
--- NOTE | 2021-12-23 21:06 | HP ---
HISTORY AND PHYSICAL DATE OF SERVICE: 12/23/2021 CHIEF COMPLAINT: Palpitations. HISTORY OF PRESENT ILLNESS: This 86-year-old gentleman with a past medical history of multiple medical problems, including atrial fibrillation and hypertension, being followed by Dr. Stevenson in the outpatient setting, was complaining of a funny feeling in the chest and some tingling. The patient came to [facility]. Atrial fibrillation with rapid ventricular rate was noted. The troponin was also slightly elevated up to 0.08. The patient was admitted for further evaluation. There is no chest pain per se. There is no history of any fever, rigors or chills. Cardiology evaluation is in progress. PAST MEDICAL HISTORY: Atrial fibrillation, hypertension. MEDICATIONS: Reviewed. They include Apixaban. Doses and the rest of the medications are noted. ALLERGIES: SULFA. FAMILY HISTORY: No history of heart disease or strokes in the family. SOCIAL HISTORY: Previous history of smoking. REVIEW OF SYSTEMS: Fourteen-point review of systems negative except as mentioned earlier. PHYSICAL EXAMINATION: Patient is alert, oriented x3. Pulse 80, blood pressure 120/77, respiration 18. HEENT: Conjunctivae normal. NECK: No jugular venous distention. CARDIOVASCULAR: S1, S2 muffled. RESPIRATION: Breath sounds diminished at the bases. A few rhonchi. ABDOMEN: Soft, non-tender. LEGS: No edema. No swelling. NERVOUS SYSTEM: No focal deficit. SKIN: No ulcer, rash, bleeding. JOINTS: No active deforming arthropathy. LABS: WBC 12.2, creatinine 1.46. ASSESSMENT: 1. Atrial fibrillation with a fast ventricular rate. 2. Chronic atrial fibrillation. 3. Hypertension. 4. Elevated troponin up to 0.084. 5. Prostate disorder. RECOMMENDATIONS AND DISCUSSION: I recommend to continue current medications. Continue symptomatic treatment. Repeat labs. Continue with apixaban. Continue the rest of the medications. The prognosis is guarded because of multiple complex medical issues. Further recommendations to follow. Cardiology will be consulted. Two-D echo if it was not done during the past 6 months. MMODL / IJN: [id number] /
[2021-12-23] MEDS: SODIUM CHLORIDE 0.9% 1,000 ML IV SCH (23:33)
[2021-12-23] MEDS: MONTELUKAST 10 MG TAB PO SCH (23:33)
[2021-12-23] MEDS: DOXAZOSIN 4 MG TAB PO SCH (23:33)
[2021-12-24 07:42] LABS: Basophils % (A) 1 %; Eosinophils # (A) 0.2 k/uL (0-0.7); Eosinophils % (A) 4 %; HCT 35.9 % (39.0-53.0); HGB 11.8 gm/dL (13.0-17.5); Lymphocytes # (A) 0.9 k/uL (1.0-4.8); Lymphocytes % (A) 16 %; MCH 33.4 pg (25.0-35.0); MCHC 32.8 g/dL (31.0-37.0); MCV 101.8 fL (80.0-100.0); Macrocytosis Slight; Mean Platelet Volume 9.3; Monocytes # (A) 0.4 k/uL (0-1.0); Monocytes % (A) 7 %; Neutrophils # (A) 3.8 k/uL (1.3-7.7); Neutrophils % (A) 71 %; Platelet Count 144 k/uL (150-450); RBC 3.53 m/uL (4.30-5.90); RDW 13.2 % (11.5-15.5); WBC 5.4 k/uL (3.8-10.6)
[2021-12-24] MEDS: APIXABAN 2.5 MG TABLET PO SCH ×2 (08:10→19:59)
[2021-12-24] MEDS: MULTIVITAMINS, THERA 1 EACH TAB PO SCH (08:11)
[2021-12-24] MEDS: SOTALOL 80 MG TAB PO SCH ×3 (08:11→23:33)
[2021-12-24] MEDS: LOSARTAN 25 MG TAB PO SCH (08:11)
[2021-12-24] MEDS: FINASTERIDE 5 MG TAB PO SCH (08:11)
[2021-12-24] MEDS: ALPRAZolam 0.5 MG TAB PO SCH (08:11)
[2021-12-24 08:14] LABS: Albumin 3.4 g/dL (3.5-5.0); Potassium 4.4 mmol/L (3.5-5.1); Total Bilirubin 0.6 mg/dL (0.2-1.3); Total Protein 5.7 g/dL (6.3-8.2)
--- NOTE | 2021-12-24 11:44 | P.CRDCN ---
History of Present Illness History of present illness: HISTORY OF PRESENTING ILLNESS This is a pleasant 86-year-old male past medical history significant for hypertension, persistent atrial fibrillation status post cardioversion, former smoker. He follows in the office with Dr. Jaimes. We have been asked to see in consultation for elevated troponin. Patient presents emergency department with complaints of chest fluttering and palpitations. He states his palpitations began yesterday, located in the center of his chest. He said it lasts for about an hour. He denies any exertional or radiating chest discomfort. He states drinking water helped relieve his symptoms. He states after an hour the palpitations resolved. He came to the ER for evaluation. He denies any associated shortness of breath, lightheadedness, dizziness, syncope or near syncope. Denies any symptoms of orthopnea or PND. No specific aggravating symptoms. He denies any history of CAD, DC, Stroke, or diabetes. DIAGNOSTICS EKG reveals atrial fibrillation HR 80, PVCs noted. Prior EKG in the office in 10/2021 patient was in sinus rhythm Telemetry tracings indicate atrial fibrillation with controlled ventricular rates HR 80s Chest xray no acute cardiopulmonary disease Laboratory reviewed, WBC 5.4, hemoglobin 11.8, platelets 144, sodium 140, potassium 4.4, BUN 28, serum creatinine 1.4, magnesium 2.2, troponin 0.08, 0.04, 0.08, TSH within normal limits Current home medications include Eliquis 5 mg twice a day, losartan 25 mg daily, sotalol 80 mg 3 times a day Echocardiogram in the office 02/2020 revealed an EF of 50%, mild concentric LVH, grade 2 diastolic dysfunction, trace aortic regurgitation, moderate mitral regurgitation, moderate tricuspid regurgitation REVIEW OF SYSTEMS At the time of my exam: CONSTITUTIONAL: Denies fever or chills. CARDIOVASCULAR: Denies chest pain, shortness of breath, orthopnea, PND. Reports palpitations. RESPIRATORY: Denies cough. GASTROINTESTINAL: Denies abdominal pain, diarrhea, constipation, nausea or vomiting. MUSCULOSKELETAL: Denies myalgias. NEUROLOGIC: Denies numbness, tingling, headacbe or weakness. ENDOCRINE: Denies fatigue, weight change, polydipsia or polyurina. GENITOURINARY: Denies burning, hematuria or urgency with micturation. HEMATOLOGIC: Denies history of anemia or bleeding. PHYSICAL EXAMINATION Vitals Reviewed CONSTITUTIONAL: No apparent distress. HEENT: Head is normocephalic. Pupils are equal, round. Sclerae anicteric. Mucous membranes of the mouth are moist. No JVD. No carotid bruit. CHEST EXAMINATION: Lungs are clear to auscultation. No chest wall tenderness is noted on palpation or with deep breathing. HEART EXAMINATION: Irregular rate and rhythm. S1, S2 heard. Systolic murmur noted. ABDOMEN: Soft, nontender. Positive bowel sounds. EXTREMITIES: 2+ peripheral pulses, no lower extremity edema and no calf tenderness. SKIN: warm, dry NEUROLOGIC EXAMINATION: Patient is awake, alert and oriented x3. ASSESSMENT Palpitations Persistent atrial fibrillation -[id number] score 3, on Eliquis Elevated troponin, likely related to atrial fibrillation and acute kidney injury Acute on chronic kidney disease History of hypertension Former smoker PLAN Continue current medications with Sotalol and anticoagulation ELiquis Continue home Losartan Obtain 2D echocardiogram Monitor on Cardiac telemetry Further recommendations based on clinical course Nurse practitioner note has been reviewed by physician. Signing provider agrees with the documented findings, assessment, and plan of care. Past Medical History Past Medical History: Atrial Fibrillation, Hypertension, Prostate Disorder History of Any Multi-Drug Resistant Organisms: None Reported Past Surgical History: Cholecystectomy, Hernia Repair Past Anesthesia/Blood Transfusion Reactions: No Reported Reaction Past Psychological History: Anxiety Smoking Status: Former smoker Past Alcohol Use History: None Reported Past Drug Use History: None Reported - Past Family History Mother Family Medical History: No Reported History Medications and Allergies Home Medications Medication Instructions Recorded Confirmed Type Finasteride [Proscar] 5 mg PO DAILY 10/30/19 12/23/21 History Montelukast [Singulair] 10 mg PO HS 10/30/19 12/23/21 History Multivitamins, Thera [Multivitamin 1 tab PO DAILY 10/30/19 12/23/21 History (formulary)] Sotalol [Betapace] 80 mg PO TID 10/30/19 12/23/21 History Terazosin [Hytrin] 2 mg PO HS 10/30/19 12/23/21 History Losartan [Cozaar] 25 mg PO DAILY #90 tab 11/03/19 12/23/21 Rx Apixaban [Eliquis] 5 mg PO BID 12/23/21 12/23/21 History Allergies Allergy/AdvReac Type Severity Reaction Status Date / Time Sulfa (Sulfonamide Allergy Rash/Hives Verified 12/23/21 07:11 Antibiotics) Physical Exam Vitals: Vital Signs Temp Pulse Resp BP Pulse Ox 12/24/21 11:28 85 16 88/52 97 12/24/21 07:59 97.8 F 63 16 120/72 98 12/24/21 03:45 98 F 73 16 117/81 95 12/24/21 02:00 83 18 12/23/21 23:31 97.8 F 83 18 131/71 96 12/23/21 20:00 98 F 80 18 127/83 97 12/23/21 16:00 97.9 F 60 18 120/72 98 12/23/21 12:00 97.8 F 64 18 106/69 97 Intake and Output 12/23/21 12/24/21 12/24/21 22:59 06:59 14:59 Intake Total 920 118 Output Total 150 Balance 770 118 Intake: Intake, IV Titration 800 Amount Sodium Chloride 0.9% 1, 800 000 ml @ 50 mls/hr IV . Q20H [facility] Rx#:[id number] Oral 120 118 Output: Urine 150 Other: Voiding Method Urinal Urinal # Voids 0 1 Results 12/24/21 07:25 12/24/21 07:25 Cardiac Enzymes 12/23/21 12/24/21 Range/Units 13:07 07:25 AST 20 (17-59) U/L Troponin I 0.080 H* (0.000-0.034) ng/mL CBC 12/24/21 Range/Units 07:25 WBC 5.4 (3.8-10.6) k/uL RBC 3.53 L (4.30-5.90) m/uL Hgb 11.8 L (13.0-17.5) gm/dL Hct 35.9 L (39.0-53.0) % Plt Count 144 L (150-450) k/uL Comprehensive Metabolic Panel 12/24/21 Range/Units 07:25 Sodium 140 (137-145) mmol/L Potassium 4.4 (3.5-5.1) mmol/L Chloride 110 H (98-107) mmol/L Carbon Dioxide 27 (22-30) mmol/L BUN 28 H (9-20) mg/dL Creatinine 1.40 H (0.66-1.25) mg/dL Glucose 97 (74-99) mg/dL Calcium 9.0 (8.4-10.2) mg/dL AST 20 (17-59) U/L ALT 13 (4-49) U/L Alkaline Phosphatase 57 (38-126) U/L Total Protein 5.7 L (6.3-8.2) g/dL Albumin 3.4 L (3.5-5.0) g/dL Current Medications Generic Name Dose Route Start Last Admin Trade Name Freq PRN Reason Stop Dose Admin Alprazolam 0.5 mg 12/23/21 21:00 12/24/21 08:11 Alprazolam 0.5 Mg Tab PO 0.5 mg BID [facility] Administration Apixaban 2.5 mg 12/23/21 21:00 12/24/21 08:10 Apixaban 2.5 Mg Tablet PO 2.5 mg BID [facility] Administration Protocol Doxazosin Mesylate 2 mg 12/23/21 21:00 12/23/21 23:33 Doxazosin 4 Mg Tab PO 2 mg HS [facility] Administration Finasteride 5 mg 12/24/21 09:00 12/24/21 08:11 Finasteride 5 Mg Tab PO 5 mg DAILY [facility] Administration Sodium Chloride 1,000 mls @ 50 mls/hr 12/23/21 22:00 12/23/21 23:33 Saline 0.9% IV 50 mls/hr .Q20H [facility] Administration Losartan Potassium 25 mg 12/24/21 09:00 12/24/21 08:11 Losartan 25 Mg Tab PO 25 mg DAILY [facility] Administration Montelukast Sodium 10 mg 12/23/21 21:00 12/23/21 23:33 Montelukast 10 Mg Tab PO 10 mg HS [facility] Administration Multivitamins 1 each 12/24/21 09:00 12/24/21 08:11 Multivitamins, Thera 1 Each Tab PO 1 each DAILY [facility] Administration Naloxone HCl 0.2 mg 12/23/21 09:06 Naloxone 0.4 Mg/Ml 1 Ml Vial IV Q2M PRN Opioid Reversal Sotalol HCl 80 mg 12/23/21 16:00 12/24/21 08:11 Sotalol 80 Mg Tab PO 80 mg TID [facility] Administration Intake and Output 12/23/21 12/24/21 12/24/21 22:59 06:59 14:59 Intake Total 920 118 Output Total 150 Balance 770 118 Intake: Intake, IV Titration 800 Amount Sodium Chloride 0.9% 1, 800 000 ml @ 50 mls/hr IV . Q20H [facility] Rx#:[id number] Oral 120 118 Output: Urine 150 Other: Voiding Method Urinal Urinal # Voids 0 1 12/24/21 07:25 12/24/21 07:25
--- NOTE | 2021-12-24 12:03 | CA ---
Transthoracic Echo Report Name: Ron Williamson Age: 86 Gender: M : 1935 Exam Date: 12/24/2021 08:48 Exam Location: [facility] Ht (in): 64 Wt (lb): 152 Ordering Physician: Rohith Shi DO Attending/Referring Phys: Test Bore Helper Dalia Smith RDCS Procedure CPT: Indications: elevated trop/ A-fib Cardiac Hx: Technical Quality: Contrast 1: Total Dose (mL): Contrast 2: Total Dose (mL): MEASUREMENTS (Male / Female) Normal Values 2D ECHO LV Diastolic Diameter PLAX 5.2 cm 4.2 - 5.9 / 3.9 - 5.3 cm LV Systolic Diameter PLAX 4.1 cm IVS Diastolic Thickness 1.2 cm 0.6 - 1.0 / 0.6 - 0.9 cm LVPW Diastolic Thickness 2.0 cm 0.6 - 1.0 / 0.6 - 0.9 cm LV Relative Wall Thickness 0.6 RV Internal Dim ED PLAX 3.5 cm LA Systolic Diameter LX 4.8 cm 3.0 - 4.0 / 2.7 - 3.8 cm LA Volume 86.6 cm??? 18 - 58 / 22 - 52 cm??? M-MODE Aortic Root Diameter MM 3.0 cm LA Systolic Diameter MM 3.9 cm LA Ao Ratio MM 1.3 MV E Point Septal Separation 0.9 cm AV Cusp Separation MM 1.5 cm DOPPLER MV E' Velocity 2.3 cm/s TR Peak Velocity 263.7 cm/s TR Peak Gradient 27.8 mmHg Right Ventricular Systolic Press 32.5 mmHg FINDINGS Left Ventricle Normal Left ventricular size, mild wall thickness, Basal inferior, posterior hypokinesis.left ventricular ejection fraction is estimated at 40-45 %. Right Ventricle Normal right ventricular size and function. Right ventricular systolic pressure within normal limits. Right Atrium Normal right atrial size. Left Atrium Moderately increased left atrial diameter. Severely increased left atrial volume. Mildly increased left atrial area. Mitral Valve Structurally normal mitral valve. [id number] mitral regurgitation. Aortic Valve Trileaflet aortic valve. Tricuspid Valve Structurally normal tricuspid valve. Mild tricuspid regurgitation. Pulmonic Valve Structurally normal pulmonic valve. Pericardium Normal pericardium. Aorta Aortic root and proximal ascending aorta not well visualized. 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 Montrell Anders MD (Electronically Signed) Final Date: 24 December 2021 12:02
--- NOTE | 2021-12-24 14:46 | P.PN ---
Subjective Progress Note Date: 12/24/21 This is an 86-year-old male who was recently admitted with chest pain and found to be in atrial fibrillation with RVR and troponin slightly elevated. Cardiology following and home medications have been resumed. Patient is currently atrial fibrillation with a controlled rate. 2-D echo was ordered and patient is maintained on gentle IV hydration with kidney function slowly improving and creatinine is 1.4 today. Blood pressures have been low and recommend continue telemetry monitoring and close monitoring of vital signs. Patient is currently afebrile and denies chest pain or shortness of breath. Review of systems: Constitutional: reports of fatigue, no reports of fever, or chills Cardiovascular: No reports of chest pain or palpitations Respiratory: No reports of shortness of breath or cough GI: No reports of nausea, vomiting, or diarrhea : No reports of dysuria or retention Neurovascular: reports of generalized weakness All medications have been reviewed Active Medications Alprazolam (Alprazolam 0.5 Mg Tab) 0.5 mg PO BID [facility] Last Admin: 12/24/21 08:11 Dose: 0.5 mg Apixaban (Apixaban 2.5 Mg Tablet) 2.5 mg PO BID [facility]; Protocol Last Admin: 12/24/21 08:10 Dose: 2.5 mg Doxazosin Mesylate (Doxazosin 4 Mg Tab) 2 mg PO HS [facility] Last Admin: 12/23/21 23:33 Dose: 2 mg Finasteride (Finasteride 5 Mg Tab) 5 mg PO DAILY [facility] Last Admin: 12/24/21 08:11 Dose: 5 mg Sodium Chloride (Saline 0.9%) 1,000 mls @ 50 mls/hr IV .Q20H [facility] Last Admin: 12/23/21 23:33 Dose: 50 mls/hr Losartan Potassium (Losartan 25 Mg Tab) 25 mg PO DAILY [facility] Last Admin: 12/24/21 08:11 Dose: 25 mg Montelukast Sodium (Montelukast 10 Mg Tab) 10 mg PO HS [facility] Last Admin: 12/23/21 23:33 Dose: 10 mg Multivitamins (Multivitamins, Thera 1 Each Tab) 1 each PO DAILY [facility] Last Admin: 12/24/21 08:11 Dose: 1 each Naloxone HCl (Naloxone 0.4 Mg/Ml 1 Ml Vial) 0.2 mg IV Q2M PRN PRN Reason: Opioid Reversal Sotalol HCl (Sotalol 80 Mg Tab) 80 mg PO TID [facility] Last Admin: 12/24/21 08:11 Dose: 80 mg Physical exam: GENERAL: This is an 86-year-old male asleep, arousable, alert and oriented 3, well-developed, well-nourished EYES: Pupils equal. Conjunctiva normal. HEENT: External appearance of nose and ears normal, oral cavity dry mucous membranes. NECK: JVD not raised; masses not palpable. HEART: S1, S2 are muffled LUNGS: Diminished breath sounds bilaterally with no wheezing or rhonchi noted ABDOMEN: Soft, nontender, normal bowel sounds noted MUSCULOSKELETAL:No Clubbing/cyanosis; muscles-grossly intact NEUROLOGICAL: Cranial nerves grossly intact; no facial asymmetry, moving all 4 limbs Assessment: Atrial fibrillation with fast ventricular rate Chronic atrial fibrillation Hypertension currently hypotensive Elevated troponin up to 0.084 Prostate disorder GI prophylaxis DVT prophylaxis Full code Plan: Recommend continue with current medications and management with cardiology following closely. 2-D echo ordered showing moderate LV systolic dysfunction secondary to inferior wall myocardial infarction and posterior hypokinesis with an EF estimated at 40-45% with mild tricuspid and mild to moderate mitral regurgitation noted Recommend continue telemetry monitoring Recommend gentle IV hydration and continue to monitor blood pressure and kidney functions Will follow-up with repeat labs Family at the bedside and questions and concerns were answered Recommend continue with encouraging oral intake Physical therapy to evaluate Due to multiple convex medical issues, prognosis is guarded The impression and plan of care has been dictated by Lali Dawson, Nurse Practitioner as directed. Dr. Parag MD I have performed a history and examination and MDM of this patient, discussed the same with the dictator, and agree with the dictator's assessment and plan as written ,documented as a scribe. Based on total visit time, I have performed more than 50% of the visit. Objective - Vital Signs Vital signs: Vital Signs Temp 97.8 F 12/24/21 07:59 Pulse 85 12/24/21 11:28 Resp 16 12/24/21 11:28 BP 88/52 12/24/21 11:28 Pulse Ox 97 12/24/21 11:28 FiO2 Intake & Output 12/23/21 12/24/21 12/24/21 18:59 06:59 18:59 Intake Total 920 218 Output Total 150 Balance 770 218 Weight 68.946 kg Intake: IV 100 Sodium Chloride 0.9% 1, 100 000 ml @ 50 mls/hr IV . Q20H [facility] Rx#:[id number] Intake, IV Titration 800 Amount Sodium Chloride 0.9% 1, 800 000 ml @ 50 mls/hr IV . Q20H [facility] Rx#:[id number] Oral 120 118 Output: Urine 150 Other: Voiding Method Urinal Urinal # Voids 0 1 - Labs CBC & Chem 7: 12/24/21 07:25 12/24/21 07:25 Labs: Abnormal Lab Results - Last 24 Hours (Table) 12/23/21 12/24/21 12/24/21 Range/Units 13:07 07:25 07:25 RBC 3.53 L (4.30-5.90) m/uL Hgb 11.8 L (13.0-17.5) gm/dL Hct 35.9 L (39.0-53.0) % MCV 101.8 H (80.0-100.0) fL Plt Count 144 L (150-450) k/uL Lymphocytes # 0.9 L (1.0-4.8) k/uL Chloride 110 H (98-107) mmol/L BUN 28 H (9-20) mg/dL Creatinine 1.40 H (0.66-1.25) mg/dL Troponin I 0.080 H* (0.000-0.034) ng/mL Total Protein 5.7 L (6.3-8.2) g/dL Albumin 3.4 L (3.5-5.0) g/dL
[2021-12-24] MEDS ORDERED: ALPRAZolam 0.5 MG TAB PO PRN (17:09)
[2021-12-24] MEDS: SODIUM CHLORIDE 0.9% 1,000 ML IV SCH (19:20)
[2021-12-24] MEDS: MONTELUKAST 10 MG TAB PO SCH (19:59)
[2021-12-24] MEDS: DOXAZOSIN 4 MG TAB PO SCH (19:59)
[2021-12-25 07:26] LABS: Calcium 8.8 mg/dL (8.4-10.2); Potassium 4.3 mmol/L (3.5-5.1)
[2021-12-25] MEDS: MULTIVITAMINS, THERA 1 EACH TAB PO SCH (09:22)
[2021-12-25] MEDS: LOSARTAN 25 MG TAB PO SCH (09:22)
[2021-12-25] MEDS: FINASTERIDE 5 MG TAB PO SCH (09:22)
[2021-12-25] MEDS: SOTALOL 80 MG TAB PO SCH ×2 (09:22→15:25)
[2021-12-25] MEDS: APIXABAN 2.5 MG TABLET PO SCH (09:22)
[2021-12-25 09:30] VITALS: RESP 17
[2021-12-25 11:42] VITALS: BP 136/67; PULSE 80; TEMP 97.7
--- NOTE | 2021-12-25 12:33 | P.PN ---
Subjective This is a pleasant 86-year-old male past medical history significant for hypertension, persistent atrial fibrillation status post cardioversion, former smoker. He follows in the office with Dr. Jaimes. We have been asked to see in consultation for elevated troponin. Patient presents emergency department with complaints of chest fluttering and palpitations. He was found to be back in atrial fibrillation, heart rates have been controlled. Echocardiogram revealed EF of 4045%, basal, posterior hypokinesis, severely increased left atrial volume, mild to moderate mitral regurgitation. Patient seen and examined at bedside, no complaints. His symptoms have resolved. He is doing well. He denies any chest pain, shortness of breath, orthopnea or PND. Denies any further palpitations. Telemetry reviewed patient is in atrial fibrillation with controlled ventricular rate, episodes of PVCs noted. He is currently stable on his home medications with sotalol 80 mg 3 times a day, losartan 25 mg daily and Eliquis 2.5 mg twice a day Renal function slowly improved range, BUN 29, serum creatinine 1.3. TSH within normal limits PHYSICAL EXAMINATION Vitals Reviewed CONSTITUTIONAL: No apparent distress. HEENT:Neck Supple. No JVD. No carotid bruit. CHEST EXAMINATION: Lungs are clear to auscultation. No chest wall tenderness is noted on palpation or with deep breathing. HEART EXAMINATION: Irregular rate and rhythm. S1, S2 heard. Systolic murmur noted. ABDOMEN: Soft, nontender. Positive bowel sounds. EXTREMITIES: 2+ peripheral pulses, no lower extremity edema and no calf tenderness. NEUROLOGIC EXAMINATION: Patient is awake, alert and oriented x3. ASSESSMENT Palpitations Persistent atrial fibrillation -[id number] score 3, on Eliquis Elevated troponin, likely related to atrial fibrillation and acute kidney injury Acute on chronic kidney disease History of hypertension Former smoker PLAN Continue current medications with Sotalol and anticoagulation ELiquis Continue home Losartan Ok to discharge from a cardiology perspective on current medical therapy. Follow up outpatient in the office in 1-2 weeks. Nurse practitioner note has been reviewed by physician. Signing provider agrees with the documented findings, assessment, and plan of care. Objective - Vital Signs Vital signs: Vital Signs Temp 97.7 F 12/25/21 11:42 Pulse 80 12/25/21 11:42 Resp 17 12/25/21 11:42 BP 136/67 12/25/21 11:42 Pulse Ox 99 12/25/21 11:42 FiO2 Intake & Output 12/24/21 12/25/21 12/25/21 18:59 06:59 18:59 Intake Total 576 268 Balance 576 268 Intake: IV 100 150 Sodium Chloride 0.9% 1, 100 150 000 ml @ 50 mls/hr IV . Q20H [facility] Rx#:[id number] Oral 476 118 Other: Voiding Method Urinal Urinal # Voids 3 2 - Labs CBC & Chem 7: 12/24/21 07:25 12/25/21 06:29 Labs: Abnormal Lab Results - Last 24 Hours (Table) 12/25/21 Range/Units 06:29 Chloride 112 H (98-107) mmol/L BUN 29 H (9-20) mg/dL Creatinine 1.34 H (0.66-1.25) mg/dL Glucose 101 H (74-99) mg/dL
--- NOTE | 2021-12-26 09:25 | P.DS ---
Providers Date of admission: 12/23/21 09:06 Expected date of discharge: 12/25/21 Attending physician: Cooper Oconnor MD Consults: 12/23/21 09:06 Consult Physician Routine Consulting Provider: [facility] Consult Reason/Comments: elevated troponin Do you want consulting provider notified?: Yes, Notify in am Primary care physician: Grupo Stevenson Hospital Course: Final diagnosis Atrial fibrillation with fast ventricular rate Chronic atrial fibrillation Hypertension currently hypotensive Elevated troponin up to 0.084, ruled out ACS Prostate disorder GI prophylaxis DVT prophylaxis Full code Discharge disposition Patient is being discharged in a stable condition with guarded prognosis to home. Patient will follow-up with Dr. Stevenson in the outpatient setting upon discharge. Patient is to also follow-up with cardiology Dr. White as scheduled. Total time taken is greater than 35 minutes. Hospital course This is an 86-year-old male who was recently admitted with atrial fibrillation with rapid ventricular rate cardiology following closely. Patient also noted to have chest pain and troponins were slightly elevated. Patient was continued on telemetry monitoring and 2-D echo was done which showed an EF of 40-45% and recommending close outpatient follow-up with Dr. White and continuing current medication regimen. Kidney function slightly elevated and hydrated and improving and recommend repeat labs with primary care follow-up and prescription was provided. Patient reports to feeling much better and extremely anxious about wanting to go home. Family members at the bedside and discussed treatment plan moving forward. Currently no reports of chest pain, shortness of breath, or palpitations. Patient is afebrile. No reports of nausea or vomiting and patient is tolerating diet. Patient will be discharged home today. Guarded prognosis. On exam vital signs are stable. Cardio S1, S2 are muffled. Respiratory system shows diminished breath sounds at the bases with no wheezing or rhonchi noted. Abdomen is soft and nontender. Nervous system shows no focal deficits. Please refer to medication reconciliation sheet for a list of medications. The impression and plan of care has been dictated by Lali Dawson, Nurse Practitioner as directed. Dr. Parag MD I have performed a history and examination and MDM of this patient, discussed the same with the dictator, and agree with the dictator's assessment and plan as written ,documented as a scribe. Based on total visit time, I have performed more than 50% of the visit. Patient Condition at Discharge: Stable Plan - Discharge Summary Discharge Rx Participant: Yes New Discharge Prescriptions: New Apixaban [Eliquis] 2.5 mg PO BID 30 Days #60 tab ALPRAZolam [Xanax] 0.5 mg PO BID PRN tab PRN Reason: Anxiety Continue Terazosin [Hytrin] 2 mg PO HS Finasteride [Proscar] 5 mg PO DAILY Sotalol [Betapace] 80 mg PO TID Montelukast [Singulair] 10 mg PO HS Multivitamins, Thera [Multivitamin (formulary)] 1 tab PO DAILY Losartan [Cozaar] 25 mg PO DAILY #90 tab Discontinued Apixaban [Eliquis] 5 mg PO BID Discharge Medication List Finasteride [Proscar] 5 mg PO DAILY 10/30/19 [History] Montelukast [Singulair] 10 mg PO HS 10/30/19 [History] Multivitamins, Thera [Multivitamin (formulary)] 1 tab PO DAILY 10/30/19 [History] Sotalol [Betapace] 80 mg PO TID 10/30/19 [History] Terazosin [Hytrin] 2 mg PO HS 10/30/19 [History] Losartan [Cozaar] 25 mg PO DAILY #90 tab 11/03/19 [Rx] ALPRAZolam [Xanax] 0.5 mg PO BID PRN tab 12/25/21 [Rx] Apixaban [Eliquis] 2.5 mg PO BID 30 Days #60 tab 12/25/21 [Rx] Follow up Appointment(s)/Referral(s): Logan White MD [STAFF PHYSICIAN] - 1 Week (FridayJanuary 09, 3:00) Grupo Stevenson DO [Primary Care Provider] - 1-2 days (December 27, 1:00) Ambulatory/Diagnostic Orders: Basic Metabolic Panel [LAB.AMB] Time Frame: 3 Days, Location: None Selected Patient Instructions/Handouts: A-fib (Atrial Fibrillation) (DC), Acute Kidney Injury (DC) Activity/Diet/Wound Care/Special Instructions: Activity Limited until follow-up Follow-up primary care provider on discharge Follow-up with cardiology in one week Continue taking medications as prescribed Monitor blood pressure closely and keep a diary of blood pressure readings for follow-up Recommend heart healthy with continuing with fluid restrictions of 30-40 ounces daily Recommend repeat BMP in 2-3 days Discharge Disposition: HOME SELF-CARE
== END 2021-12-25 15:45 | disposition home or self-care (01) | DRG 309 ==
LOC: EC 07:01 → 3SCARD 09:06
PROVIDERS: ADMIT Internal Medicine; ATTEND Internal Medicine
DX: I48.19 Other persistent atrial fibrillation (principal); N17.9 Acute kidney failure, unspecified; I12.9 Hypertensive chronic kidney disease with stage 1 through stage 4 chronic kidney disease, or unspecified chronic kidney disease; D53.9 Nutritional anemia, unspecified; I95.9 Hypotension, unspecified; N42.9 Disorder of prostate, unspecified; I49.3 Ventricular premature depolarization; R77.8 Other specified abnormalities of plasma proteins; F41.9 Anxiety disorder, unspecified; N18.9 Chronic kidney disease, unspecified; I08.3 Combined rheumatic disorders of mitral, aortic and tricuspid valves; Z87.891 Personal history of nicotine dependence; Z79.01 Long term (current) use of anticoagulants; Z79.899 Other long term (current) drug therapy; Z98.890 Other specified postprocedural states; Z90.49 Acquired absence of other specified parts of digestive tract; Z88.2 Allergy status to sulfonamides
CPT/HCPCS: 36415; 71046; 80048; 80053; 81003; 83735; 84443; 84484; 85025; 85610; 85730; 93005; 93306; 99285

== ENCOUNTER 2023-03-27 00:59 | Emergency (ER) | payer BC, MEDICARE ==
[2023-03-27] MEDS ORDERED: SODIUM CHLORIDE 0.9% 500 ML 500 ML IV STA (01:27)
[2023-03-27 01:48] LABS: Basophils % (A) 0 %; Eosinophils # (A) 0.1 k/uL (0-0.7); Eosinophils % (A) 1 %; HCT 37.1 % (39.0-53.0); HGB 12.8 gm/dL (13.0-17.5); Lymphocytes # (A) 0.7 k/uL (1.0-4.8); Lymphocytes % (A) 15 %; MCHC 34.6 g/dL (31.0-37.0); MCV 98.3 fL (80.0-100.0); Monocytes # (A) 0.4 k/uL (0-1.0); Monocytes % (A) 8 %; Neutrophils # (A) 3.4 k/uL (1.3-7.7); Neutrophils % (A) 74 %; Platelet Count 152 k/uL (150-450); RBC 3.78 m/uL (4.30-5.90); RDW 13.9 % (11.5-15.5); WBC 4.6 k/uL (3.8-10.6)
[2023-03-27 02:06] VITALS: TEMP 98.2
[2023-03-27 02:39] LABS: INR 0.9 (<1.2); Partial Thromboplastin Time 25.7 sec (22.0-30.0); Prothrombin Time 9.7 sec (9.0-12.0)
[2023-03-27 02:46] LABS: ALT 23 U/L (4-49); AST 35 U/L (17-59); African American GFR (CKD) 39 (>60 ml/min/1.73 sqM); Albumin 3.5 g/dL (3.5-5.0); Alkaline Phosphatase 79 U/L (38-126); Anion Gap 9 mmol/L; Blood Urea Nitrogen 54 mg/dL (9-20); Calcium 9.2 mg/dL (8.4-10.2); Carbon Dioxide 21 mmol/L (22-30); Chloride 107 mmol/L (98-107); Glucose 108 mg/dL (74-99); Magnesium 2.1 mg/dL (1.6-2.3); Non-African American GFR(CKD) 34 (>60 ml/min/1.73 sqM); Potassium 4.2 mmol/L (3.5-5.1); Sodium 137 mmol/L (137-145); Total Bilirubin 0.8 mg/dL (0.2-1.3); Total Protein 6.3 g/dL (6.3-8.2)
[2023-03-27 02:59] VITALS: BP 109/71; PULSE 117; RESP 17
--- NOTE | 2023-03-27 03:49 | ED ---
Arrhythmia/Palpitations HPI - General Chief Complaint: Arrhythmia/Palpitations Stated Complaint: Afib,Covid+ Time Seen by Provider: 03/27/23 01:22 Source: patient Mode of arrival: wheelchair Limitations: no limitations - History of Present Illness Initial Comments: A 8-year-old male history of A. fib presenting with chief complaint of palpitations. Patient recently tested positive for Covid. States that this evening he felt the sensation of "my heart is racing". He states that when this happens he gets tingling in the bilateral arms. He states that after getting in the car to come here and since arriving here he has not experienced the se nsation again. No chest pain or difficulty breathing. No abdominal pain, nausea, vomiting. No headache, vision or hearing changes, weakness. No dizziness. He is currently on antiviral medication. - Related Data Home Medications Medication Instructions Recorded Confirmed Finasteride [Proscar] 5 mg PO DAILY 10/30/19 12/23/21 Montelukast [Singulair] 10 mg PO HS 10/30/19 12/23/21 Multivitamins, Thera [Multivitamin 1 tab PO DAILY 10/30/19 12/23/21 (formulary)] Sotalol [Betapace] 80 mg PO TID 10/30/19 12/23/21 Terazosin [Hytrin] 2 mg PO HS 10/30/19 12/23/21 Previous Rx's Medication Instructions Recorded Losartan [Cozaar] 25 mg PO DAILY #90 tab 11/03/19 ALPRAZolam [Xanax] 0.5 mg PO BID PRN tab 12/25/21 Apixaban [Eliquis] 2.5 mg PO BID 30 Days #60 tab 12/25/21 Allergies Allergy/AdvReac Type Severity Reaction Status Date / Time Sulfa (Sulfonamide Allergy Rash/Hives Verified 12/23/21 07:11 Antibiotics) Review of Systems ROS Statement: Those systems with pertinent positive or pertinent negative responses have been documented in the HPI. ROS Other: All systems not noted in ROS Statement are negative. Past Medical History Past Medical History: Atrial Fibrillation, Hypertension, Prostate Disorder History of Any Multi-Drug Resistant Organisms: None Reported Past Surgical History: Cholecystectomy, Hernia Repair Past Anesthesia/Blood Transfusion Reactions: No Reported Reaction Past Psychological History: Anxiety Smoking Status: Former smoker Past Alcohol Use History: None Reported Past Drug Use History: None Reported - Past Family History Mother Family Medical History: No Reported History General Exam Limitations: no limitations General appearance: alert, in no apparent distress Head exam: Present: atraumatic, normocephalic, normal inspection Eye exam: Present: normal appearance, EOMI Neck exam: Present: normal inspection, full ROM Respiratory exam: Present: normal lung sounds bilaterally. Absent: respiratory distress, wheezes, rales, rhonchi, stridor Cardiovascular Exam: Present: irregular rhythm, normal heart sounds. Absent: regular rate, systolic murmur, diastolic murmur, rubs, gallop, clicks Neurological exam: Present: alert, oriented X3, CN II-XII intact Psychiatric exam: Present: normal affect, normal mood Skin exam: Present: warm, dry, intact, normal color. Absent: rash Course Vital Signs 03/27/23 03/27/23 03/27/23 01:00 01:28 01:56 Temperature 97.6 F 98.2 F Pulse Rate 70 118 H Respiratory 18 18 Rate Blood Pressure 110/67 O2 Sat by Pulse 98 96 Oximetry 03/27/23 02:00 Temperature Pulse Rate 117 H Respiratory 17 Rate Blood Pressure 109/71 O2 Sat by Pulse 98 Oximetry EKG Findings - EKG Comments: EKG Findings:: Atrial fibrillation with rapid ventricular response with aberrant conduction or ventricular premature complexes. Ventricular rate 108. NC interval indeterminable. QRS 125. QT 347. QTC 410. No acute changes from previous EKG. Medical Decision Making - Medical Decision Making Was pt. sent in by a medical professional or institution (, PA, POT ROOM SUPERVISOR, urgent care, hospital, or fci...) When possible be specific @ -No Did you speak to anyone other than the patient for history (EMS, parent, family, police, friend...)? What history was obtained from this source @ -Family is at bedside supplementing history Did you review nursing and triage notes (agree or disagree)? Why? @ -I reviewed and agree with nursing and triage notes Were old charts reviewed (outside hosp., previous admission, EMS record, old EKG, old radiological studies, urgent care reports/EKG's, fci records)? Report findings @ -No old charts were reviewed Differential Diagnosis (chest pain, altered mental status, abdominal pain women, abdominal pain men, vaginal bleeding, weakness, fever, dyspnea, syncope, headache, dizziness, GI bleed, back pain, seizure, CVA, palpatations, mental health, musculoskeletal)? @ -Differential Palpitations Ventricular arrhythmias, atrial arrhythmias, myocardial infarction, anemia, thyrotoxicosis, electrolyte imbalance, hypokalemia, pulmonary embolism, pulmonary disease, drugs, alcohol, anxiety, stress.... This is not meant to be an all-inclusive list. EKG interpreted by me (3pts min.). @ -As above X-rays interpreted by me (1pt min.). @ -Chest x-ray shows no acute process CT interpreted by me (1pt min.). @ -None done U/S interpreted by me (1pt. min.). @ -None done What testing was considered but not performed or refused? (CT, X-rays, U/S, labs)? Why? @ -None What meds were considered but not given or refused? Why? @ -None Did you discuss the management of the patient with other professionals (professionals i.e. , PA, POT ROOM SUPERVISOR, lab, RT, psych nurse, geriatric social work professor, store receiving specialist, teacher, fourth officer, employment case manager)? Give summary @ -No Was smoking cessation discussed for >3mins.? @ -No Was critical care preformed (if so, how long)? @ -No Were there social determinants of health that impacted care today? How? (Homelessness, low income, unemployed, alcoholism, drug addiction, transportation, low edu. Level, literacy, decrease access to med. care, fdc, rehab)? @ -No Was there de-escalation of care discussed even if they declined (Discuss DNR or withdrawal of care, Hospice)? DNR status @ -No What co-morbidities impacted this encounter? (DM, HTN, Smoking, COPD, CAD, Cancer, CVA, ARF, Chemo, Hep., AIDS, mental health diagnosis, sleep apnea, morbid obesity)? @ -A. fib, Covid Was patient admitted / discharged? Hospital course, mention meds given and route, prescriptions, significant lab abnormalities, going to OR and other pertinent info. @ -88-year-old male with history of A. fib presenting with chief complaint of palpitations. He is currently Covid positive. EKG shows A. fib RVR with rate of 108. Patient's rate ranges from 80s to 110s. He is on eliquis and sotalol. Troponin 0.079, patient's troponin is chronically elevated. Creatinine 1.79 and BUN 54, this is only mildly elevated from previous baseline about 1 year ago. Chest x-ray shows no acute process. On reassessment patient is resting in a chair and reports that the sensation of his heart racing has not returned. He feels well and would like to be discharged home. Follow-up with PCP. Report back to ER with any new or worsening symptoms. Discussed return parameters and answered all questions. Patient conveyed verbal understanding and agreed to the plan. I discussed this case in detail with my attending Dr. Aviles Undiagnosed new problem with uncertain prognosis? @ -No Drug Therapy requiring intensive monitoring for toxicity (Heparin, Nitro, Insulin, Cardizem)? @ -No Were any procedures done? @ -No Diagnosis/symptom? @ -A. fib, Covid Acute, or Chronic, or Acute on Chronic? @ -Acute on chronic; acute Uncomplicated (without systemic symptoms) or Complicated (systemic symptoms)? @ -Uncomplicated Side effects of treatment? @ -No Exacerbation, Progression, or Severe Exacerbation? @ -No Poses a threat to life or bodily function? How? (Chest pain, [place], [place], pneumonia, PE, COPD, DKA, ARF, appy, cholecystitis, CVA, Diverticulitis, Homicidal, Suicidal, threat to staff... and all critical care pts) @ -No - Lab Data Result diagrams: 03/27/23 01:35 03/27/23 01:35 Lab Results 03/27/23 03/27/23 03/27/23 Range/Units 01:35 01:35 01:35 WBC 4.6 (3.8-10.6) k/uL RBC 3.78 L (4.30-5.90) m/uL Hgb 12.8 L (13.0-17.5) gm/dL Hct 37.1 L (39.0-53.0) % MCV 98.3 (80.0-100.0) fL MCH 34.0 (25.0-35.0) pg MCHC 34.6 (31.0-37.0) g/dL RDW 13.9 (11.5-15.5) % Plt Count 152 (150-450) k/uL MPV 9.0 Neutrophils % 74 % Lymphocytes % 15 % Monocytes % 8 % Eosinophils % 1 % Basophils % 0 % Neutrophils # 3.4 (1.3-7.7) k/uL Lymphocytes # 0.7 L (1.0-4.8) k/uL Monocytes # 0.4 (0-1.0) k/uL Eosinophils # 0.1 (0-0.7) k/uL Basophils # 0.0 (0-0.2) k/uL PT 9.7 (9.0-12.0) sec INR 0.9 (<1.2) APTT 25.7 (22.0-30.0) sec Sodium 137 (137-145) mmol/L Potassium 4.2 (3.5-5.1) mmol/L Chloride 107 (98-107) mmol/L Carbon Dioxide 21 L (22-30) mmol/L Anion Gap 9 mmol/L BUN 54 H (9-20) mg/dL Creatinine 1.79 H (0.66-1.25) mg/dL Est GFR (CKD-EPI)AfAm 39 (>60 ml/min/1.73 sqM) Est GFR (CKD-EPI)NonAf 34 (>60 ml/min/1.73 sqM) Glucose 108 H (74-99) mg/dL Calcium 9.2 (8.4-10.2) mg/dL Magnesium 2.1 (1.6-2.3) mg/dL Total Bilirubin 0.8 (0.2-1.3) mg/dL AST 35 (17-59) U/L ALT 23 (4-49) U/L Alkaline Phosphatase 79 (38-126) U/L Troponin I (0.000-0.034) ng/mL Total Protein 6.3 (6.3-8.2) g/dL Albumin 3.5 (3.5-5.0) g/dL TSH 1.950 (0.465-4.680) mIU/L 03/27/23 Range/Units 01:35 WBC (3.8-10.6) k/uL RBC (4.30-5.90) m/uL Hgb (13.0-17.5) gm/dL Hct (39.0-53.0) % MCV (80.0-100.0) fL MCH (25.0-35.0) pg MCHC (31.0-37.0) g/dL RDW (11.5-15.5) % Plt Count (150-450) k/uL MPV Neutrophils % % Lymphocytes % % Monocytes % % Eosinophils % % Basophils % % Neutrophils # (1.3-7.7) k/uL Lymphocytes # (1.0-4.8) k/uL Monocytes # (0-1.0) k/uL Eosinophils # (0-0.7) k/uL Basophils # (0-0.2) k/uL PT (9.0-12.0) sec INR (<1.2) APTT (22.0-30.0) sec Sodium (137-145) mmol/L Potassium (3.5-5.1) mmol/L Chloride (98-107) mmol/L Carbon Dioxide (22-30) mmol/L Anion Gap mmol/L BUN (9-20) mg/dL Creatinine (0.66-1.25) mg/dL Est GFR (CKD-EPI)AfAm (>60 ml/min/1.73 sqM) Est GFR (CKD-EPI)NonAf (>60 ml/min/1.73 sqM) Glucose (74-99) mg/dL Calcium (8.4-10.2) mg/dL Magnesium (1.6-2.3) mg/dL Total Bilirubin (0.2-1.3) mg/dL AST (17-59) U/L ALT (4-49) U/L Alkaline Phosphatase (38-126) U/L Troponin I 0.079 H* (0.000-0.034) ng/mL Total Protein (6.3-8.2) g/dL Albumin (3.5-5.0) g/dL TSH (0.465-4.680) mIU/L Disposition Clinical Impression: Atrial fibrillation, COVID Disposition: HOME SELF-CARE Condition: Fair Instructions (If sedation given, give patient instructions): A-fib (Atrial Fibrillation) (ED), COVID-19 (Coronavirus Disease 2019) (ED) Additional Instructions: Follow-up with PCP. Report back to ER with any new or worsening symptoms. Is patient prescribed a controlled substance at d/c from ED?: No Referrals: Grupo Stevenson DO [Primary Care Provider] - 1-2 days Time of Disposition: 03:48
--- NOTE | 2023-03-27 05:50 | XR ---
EXAM: XR Chest, 2 Views CLINICAL HISTORY: Dysrhythmia TECHNIQUE: Frontal and lateral views of the chest. COMPARISON: 12/23/21 FINDINGS: Lungs: Normal lung volumes. Mild emphysematous changes. No evidence of airspace consolidation. No pulmonary edema. Pleural space: Unremarkable. No pneumothorax. No significant pleural effusions. Heart: Unremarkable. No cardiomegaly. Mediastinum: Unremarkable. There is no mediastinal widening or shift. Bones/joints: No acute osseous abnormality. IMPRESSION: There is no evidence of acute cardiopulmonary abnormality.
== END 2023-03-27 04:06 | disposition home or self-care (01) ==
LOC: EC 00:59
DX: U07.1 COVID-19 (principal); I48.91 Unspecified atrial fibrillation; I10 Essential (primary) hypertension; Z87.891 Personal history of nicotine dependence; Z88.2 Allergy status to sulfonamides
CPT/HCPCS: 36415; 71046; 80053; 83735; 84443; 84484; 85025; 85610; 85730; 93005; 99284

== ENCOUNTER → 2023-06-12 | Outpatient (CLI) | payer MEDICARE ==
[2023-06-13 02:14] LABS: Basophils # (A) 0.03 X 10*3/uL (0.00-0.10); Basophils % (A) 0.5 %; Eosinophils # (A) 0.18 X 10*3/uL (0.04-0.35); Eosinophils % (A) 2.8 %; HCT 37.5 % (39.6-50.0); Lymphocytes # (A) 0.99 X 10*3/uL (0.90-5.00); Lymphocytes % (A) 15.2 %; Mean Platelet Volume 12.3 FL (9.5-12.2); Monocytes % (A) 10.7 %; NRBC Per 100 WBC 0 X 10*3/uL (0.00-0.01); Neutrophils # (A) 4.61 X 10*3/uL (1.80-7.70); Neutrophils % (A) 70.5 %; Platelet Count 168 X 10*3/uL (140-440); RBC 3.64 X 10*6/uL (4.40-5.60); RDW 13.3 % (11.5-14.5); WBC 6.53 X 10*3/uL (4.50-10.00)
[2023-06-13 02:37] LABS: ALT 17 U/L (10-49); AST 19 U/L (14-35); Albumin 3.8 g/dL (3.8-4.9); Albumin/Globulin Ratio 1.81 Ratio (1.60-3.17); Alkaline Phosphatase 80 U/L (41-126); BUN/Creat Ratio 27.33 Ratio (12.00-20.00); Blood Urea Nitrogen 49.2 mg/dL (9.0-27.0); Calcium 9.9 mg/dL (8.7-10.3); Carbon Dioxide 25.3 mmol/L (21.6-31.8); Chloride 109 mmol/L (96-109); Globulin 2.1 g/dL (1.6-3.3); Glucose 136 mg/dL (70-110); Potassium 4.9 mmol/L (3.5-5.5); Sodium 144 mmol/L (135-145); Total Bilirubin 0.4 mg/dL (0.3-1.2); Total Protein 5.9 g/dL (6.2-8.2)
== END | disposition home or self-care (01) ==
LOC: LABWHC1 14:57
PROVIDERS: ATTEND Internal Medicine Interventional Cardiology
DX: I48.21 Permanent atrial fibrillation (principal)
CPT/HCPCS: 36415; 80053; 85025

== ENCOUNTER → 2024-03-31 | Outpatient (CLI) | payer MEDICARE ==
[2024-03-31 23:38] LABS: BUN/Creat Ratio 22.21 Ratio (12.00-20.00); Blood Urea Nitrogen 42.2 mg/dL (9.0-27.0); Calcium 9.4 mg/dL (8.7-10.3); Carbon Dioxide 23.1 mmol/L (21.6-31.8); Chloride 108 mmol/L (96-109); Glucose 105 mg/dL (70-110); Potassium 5.6 mmol/L (3.5-5.5); Sodium 140 mmol/L (135-145)
[2024-03-31 23:40] LABS: NT-Pro-B-Type Natriuretic Pept 6856 pg/mL (0-450)
== END | disposition home or self-care (01) ==
LOC: LABWHC1 13:42
PROVIDERS: ATTEND Internal Medicine Interventional Cardiology
DX: I42.8 Other cardiomyopathies (principal)
CPT/HCPCS: 36415; 80048; 83880